=== PATIENT | male | born 1945 | race Caucasian/White ===

== ENCOUNTER 2017-04-04 06:40 | Inpatient (IN) | payer MEDICARE, OTHER ==
[2017-04-04] MEDS ORDERED: Sodium Chloride 0.9% 1,000 ML IV ONE ×2 (07:22→10:30)
--- NOTE | 2017-04-04 07:30 | EDM.PDOC ---
ED HPI GENERAL MEDICAL PROBLEM - General Chief Complaint: Fever Stated Complaint: FEVER/POSS. PNEUMONIA Time Seen by Provider: 04/04/17 07:05 Source of Information: Reports: Patient, Family (), RN Notes Reviewed History Limitations: Reports: Physical Impairment (Patient wearing a nonrebreather mask) - History of Present Illness INITIAL COMMENTS - FREE TEXT/NARRATIVE: The patient and his are visiting from [place]. The patient's states that the patient developed a subjective fever and chills 2 nights ago, 04/02/2017. She gave him Tylenol, and his symptoms resolved. He had similar symptoms last night, was again given Tylenol, and again his symptoms resolved. Overall, however, they feel that his condition has declined, although they are unable to say specifically what new symptoms he has. He has a chronic cough and chronic dyspnea, related to throat cancer and chronic aspiration. The patient has a PEG tube. Here in the ED, his oxygen saturations was found to be under 70% (which is as low as an oxygen saturation monitor can accurately detect), and he was therefore placed on a nonrebreather mask, however, the patient appears to be in atrial fibrillation, which can cause an inaccurately low reading. His blood pressure is low at 77/61, although, again, with a history of fibrillation, this may be an inaccurate reading. Review of prior medical records finds that the patient had a right lower lobe consolidation on his chest x-rays 06/19/15 and 06/22/15, and a left lung infiltrate on chest x-ray 11/10/2015. He did NOT have an infiltrate on a chest x- ray dated 07/07/2016. The patient states that he did receive an influenza vaccine about one month ago. Chest Pain Score (Numeric/FACES): 7 - Related Data Allergies Allergy/AdvReac Type Severity Reaction Status Date / Time No Known Allergies Allergy Verified 04/04/17 07:57 Home Meds: Home Meds Diltiazem. 5 ml GTUBE TID 06/19/15 [History] Metoprolol. 2.5 ml GTUBE TID 06/19/15 [History] Warfarin [Coumadin] 2.5 mg PO MOWEFR 07/07/16 [History] Warfarin [Coumadin] 5 mg PO SUTUTHSA 07/07/16 [History] Past Medical History HEENT History: Reports: Impaired Vision Other HEENT History: Pt wears glasses. Cardiovascular History: Reports: Afib (paroxysmal) Gastrointestinal History: Reports: GERD (untreated) Genitourinary History: Reports: BPH (untreated) Oncologic (Cancer) History: Reports: Other (See Below) (Throat, dx'd 1995, S/P surgical excision, RTx) Other Oncologic History: THROAT - Past Surgical History GI Surgical History: Reports: Other (See Below) (PEG) Musculoskeletal Surgical History: Reports: Hip Replacement (bilateral) Oncologic Surgical History: Reports: Other (See Below) (throat) Social & Family History - Tobacco Use Smoking Status *Q: Former Smoker Years of Tobacco use: 12 Packs/Tins Daily: 1.5 Month Tobacco Last Used: Quit 1995 - Caffeine Use Caffeine Use: Reports: None - Alcohol Use Alcohol Use History: Yes Alcohol Use Frequency: Daily - Recreational Drug Use Recreational Drug Use: No - Living Situation & Occupation Living situation: Reports: , with Spouse Occupation: Retired ED ROS GENERAL - Review of Systems Review Of Systems: See Below Constitutional: Reports: No Symptoms HEENT: Reports: No Symptoms Respiratory: Reports: Shortness of Breath (chronic), Cough (chronic) Cardiovascular: Reports: No Symptoms Endocrine: Reports: No Symptoms GI/Abdominal: Reports: No Symptoms : Reports: No Symptoms Musculoskeletal: Reports: No Symptoms Skin: Reports: No Symptoms Neurological: Reports: No Symptoms Psychiatric: Reports: No Symptoms Hematologic/Lymphatic: Reports: No Symptoms Immunologic: Reports: No Symptoms ED EXAM, SEPSIS - Physical Exam Exam: See Below Exam Limited By: No Limitations General Appearance: Alert, WD/WN, No Apparent Distress Eye Exam: Bilateral Eye: Normal Inspection Ears: Normal External Exam, Hearing Grossly Normal Nose: Normal Inspection, No Blood Throat/Mouth: Normal Lips, No Airway Compromise Head: Atraumatic, Normocephalic Neck: Full Range of Motion Respiratory/Chest: No Respiratory Distress, No Accessory Muscle Use, Decreased Breath Sounds, Rhonchi (Rt > Lt). No: Crackles, Wheezing, Accessory Muscle Use , Prolonged Expiration Cardiovascular: Normal Peripheral Pulses, No Edema, No Gallop, No JVD, No Murmur , No Rub, Tachycardia (too fast to palpate if regular or irregular) Peripheral Pulses: 3+: Radial (L), Radial (R) GI/Abdominal Exam: Normal Bowel Sounds, Soft, Non-Tender, No Organomegaly, No Distention, No Abnormal Bruit, No Mass, Pelvis Stable, Other (PEG in epigastric area is C/D/I) (Male) Exam: Deferred Rectal (Males) Exam: Deferred Back: Normal Inspection, Full Range of Motion, NT Extremities: Normal Inspection, Normal Range of Motion, No Pedal Edema, Normal Capillary Refill Neurological: Alert, Oriented, Normal Cognition, No Motor/Sensory Deficits Psychiatric: Normal Affect Skin: Warm (good peripheral perfusion), Dry, Intact, Normal Color, No Rash Lymphatic: Bilateral: No Adenopathy EKG INTERPRETATION EKG Date: 04/04/17 Time: 07:30 Rhythm: A-Fib Rate (Beats/Min): 141 Ashley: Normal P-Wave: Absent QRS: Normal ST-T: Normal QT: Normal Comparison: No Change (11/10/2015) Course - Vital Signs Last Recorded V/S: Last Vital Signs Temp 36.7 C 04/04/17 06:50 Pulse 162 H 04/04/17 06:50 Resp 18 04/04/17 06:50 BP 77/61 L 04/04/17 06:50 Pulse Ox 72 L 04/04/17 06:50 - Orders/Labs/Meds Orders: Active Orders 24 hr Category Date Time Status EKG Documentation Completion [RC] STAT Care 04/04/17 07:18 Active Chest 1V Frontal [CR] Stat Exams 04/04/17 07:17 Taken CULTURE BLOOD [BC] Stat Lab 04/04/17 07:24 Received CULTURE BLOOD [BC] Stat Lab 04/04/17 07:39 Received Diltiazem 125 mg Med 04/04/17 07:45 Active Sodium Chloride 0.9% [Normal Saline] 100 ml IV TITRATE Blood Culture x2 Reflex Set [OM.PC] Stat Oth 04/04/17 07:22 Ordered Medication Orders Diltiazem HCl 125 mg/ Sodium (Chloride) 125 mls @ 10 mls/hr IV TITRATE KARINA; 10 MG/HR PRN Reason: Protocol Last Admin: 04/04/17 08:12 Dose: 10 mg/hr, 10 mls/hr Labs: Laboratory Tests 04/04/17 04/04/17 04/04/17 Range/Units 07:18 07:24 07:24 WBC 21.19 H (4.23-9.07) K/mm3 RBC 3.86 L (4.63-6.08) M/mm3 Hgb 13.0 L (13.7-17.5) gm/L Hct 38.3 L (40.1-51.0) % MCV 99.2 H (79.0-92.2) fl MCH 33.7 H (25.7-32.2) pg MCHC 33.9 (32.2-35.5) g/dl RDW Std Deviation 47.6 H (35.1-43.9) fL Plt Count 256 (163-337) K/mm3 MPV 10.6 (9.4-12.3) fl Neutrophils % (Manual) 86 H (40-60) % Band Neutrophils % 4 (0-10) % Lymphocytes % (Manual) 7 L (20-40) % Atypical Lymphs % 0 % Monocytes % (Manual) 2 (2-10) % Eosinophils % (Manual) 1 (0.8-7.0) % Basophils % (Manual) 0 L (0.2-1.2) Platelet Estimate Adequate Poikilocytosis 1+ slight Anisocytosis 1+ slight RBC Morph Comment Not Reportable PT (8.0-13.0) SECONDS INR APTT (22-36) SECONDS Puncture Site Rt radial ABG pH 7.44 (7.35-7.45) ABG pCO2 36.0 (35.0-45.0) mmHg ABG pO2 55.0 L (80.0-100.0) mmHg ABG HCO3 24.0 (22.0-26.0) meq/L ABG O2 Saturation 84.5 L (96.0-97.0) % ABG Base Excess 0.7 (-2-2.0) Dwayne Test Positive O2 Delivery Device Mask Oxygen Flow Rate 15.0 FiO2 0.00 L (21.00-100.00) % Sodium 132 L (136-145) mEq/L Potassium 4.9 (3.5-5.1) mEq/L Chloride 97 L (98-107) mEq/L Carbon Dioxide 28 (21-32) mEq/L Anion Gap 11.9 (5-15) BUN 23 H (7-18) mg/dL Creatinine 1.4 H (0.7-1.3) mg/dL Est Cr Clr Drug Dosing 50.40 mL/min Estimated GFR (MDRD) 50 (>60) mL/min BUN/Creatinine Ratio 16.4 (14-18) Glucose 110 (80-115) mg/dL Lactic Acid (0.4-2.0) mmol/L Calcium 9.0 (8.5-10.1) mg/dL Total Bilirubin 1.5 H (0.2-1.0) mg/dL AST 17 (15-37) U/L ALT 15 L (16-63) U/L Alkaline Phosphatase 66 (46-116) U/L Troponin I < 0.017 (0.00-0.056) ng/mL Total Protein 7.3 (6.4-8.2) g/dl Albumin 3.0 L (3.4-5.0) g/dl Globulin 4.3 gm/dL Albumin/Globulin Ratio 0.7 L (1-2) 04/04/17 04/04/17 Range/Units 07:24 07:24 WBC (4.23-9.07) K/mm3 RBC (4.63-6.08) M/mm3 Hgb (13.7-17.5) gm/L Hct (40.1-51.0) % MCV (79.0-92.2) fl MCH (25.7-32.2) pg MCHC (32.2-35.5) g/dl RDW Std Deviation (35.1-43.9) fL Plt Count (163-337) K/mm3 MPV (9.4-12.3) fl Neutrophils % (Manual) (40-60) % Band Neutrophils % (0-10) % Lymphocytes % (Manual) (20-40) % Atypical Lymphs % % Monocytes % (Manual) (2-10) % Eosinophils % (Manual) (0.8-7.0) % Basophils % (Manual) (0.2-1.2) Platelet Estimate Poikilocytosis Anisocytosis RBC Morph Comment PT 23.9 H (8.0-13.0) SECONDS INR 2.09 APTT 41 H (22-36) SECONDS Puncture Site ABG pH (7.35-7.45) ABG pCO2 (35.0-45.0) mmHg ABG pO2 (80.0-100.0) mmHg ABG HCO3 (22.0-26.0) meq/L ABG O2 Saturation (96.0-97.0) % ABG Base Excess (-2-2.0) Dwayne Test O2 Delivery Device Oxygen Flow Rate FiO2 (21.00-100.00) % Sodium (136-145) mEq/L Potassium (3.5-5.1) mEq/L Chloride (98-107) mEq/L Carbon Dioxide (21-32) mEq/L Anion Gap (5-15) BUN (7-18) mg/dL Creatinine (0.7-1.3) mg/dL Est Cr Clr Drug Dosing mL/min Estimated GFR (MDRD) (>60) mL/min BUN/Creatinine Ratio (14-18) Glucose (80-115) mg/dL Lactic Acid 3.0 H (0.4-2.0) mmol/L Calcium (8.5-10.1) mg/dL Total Bilirubin (0.2-1.0) mg/dL AST (15-37) U/L ALT (16-63) U/L Alkaline Phosphatase (46-116) U/L Troponin I (0.00-0.056) ng/mL Total Protein (6.4-8.2) g/dl Albumin (3.4-5.0) g/dl Globulin gm/dL Albumin/Globulin Ratio (1-2) Meds: Medications Generic Name Dose Route Start Last Admin Trade Name Freq PRN Reason Stop Dose Admin Diltiazem HCl 125 mg/ Sodium 125 mls @ 10 mls/hr 04/04/17 07:45 04/04/17 08: 12 Chloride IV 10 mg/hr TITRATE KARINA 10 mls/hr Protocol Administration 10 MG/HR Discontinued Medications Generic Name Dose Route Start Last Admin Trade Name Freq PRN Reason Stop Dose Admin Diltiazem HCl 10 mg 04/04/17 07:40 04/04/17 07:52 Diltiazem IVPUSH 04/04/17 07:41 10 mg ONETIME STA Administration Sodium Chloride 1,000 mls @ 999 mls/hr 04/04/17 07:22 04/04/17 07:30 Normal Saline IV 04/04/17 08:22 999 mls/hr ONETIME ONE Administration Ampicillin Sodium/Sulbactam 100 mls @ 200 mls/hr 04/04/17 08:03 Sodium 3 gm/ Sodium Chloride IV 04/04/17 08:32 ONETIME ONE - Re-Assessments/Exams Free Text/Narrative Re-Assessment/Exam: 04/04/17 07:55 Portable chest radiograph reviewed. Cardiac silhouette is within normal limits. No pulmonary vascular congestion. No pleural effusions seen on this AP view. There are infiltrates seen in the bilateral lower lung mccarty. No pneumothorax. Hyperinflation and bilateral diaphragmatic flattening, consistent with COPD, noted. Formal read per the Radiologist pending. 04/04/17 08:04 The patient's WBC count is elevated at 21.19 with 4% bandemia. The patient's ABG does not show a significant acid-base disturbance, however, it does confirm the patient's oxygen saturation is 84.5% while on a partial rebreather mask. The chest radiograph demonstrates bilateral lower lung field infiltrates, consistent with either pneumonia or pneumonitis. The patient is not on an antacid, which would increase the likelihood of aspiration causing pneumonitis, not pneumonia, nevertheless, I believe it would be prudent to treat for pneumonia at this time. I have therefore ordered 3 g Unasyn. Blood cultures were ordered with the initial orders. 04/04/17 08:09 The patient's heart rate is consistently around 100 bpm following Cardizem 10 mg IVP and while on a Cardizem drip at 10 mg/hr. 04/04/17 08:35 Test results discussed with the patient and his . With the infiltrates on the chest radiograph, an elevated WBC count, and an elevated lactic acid level of 3.0 (despite a normal bicarbonate level and no increased anion gap), the patient may have sepsis. As above, blood cultures were obtained earlier, and the patient has been started on Unasyn. His BUN/Cr are mildly elevated at 23/1.4 , but were normal at 14/0.8 on 07/07/2016, indicating that he has an acute kidney injury. I am recommending admission to the hospital for further treatment , and the patient has agreed. 04/04/17 08:[address] Ha at 08:43. He agrees to admit the patient to the ICU. Departure - Departure Time of Disposition: 08:48 Disposition: Admitted As Inpatient 67 Condition: Fair Clinical Impression: Septic shock, Acute kidney injury Aspiration pneumonia Qualifiers: Aspiration pneumonia type: due to gastric secretions Laterality: left Lung location: lower lobe of lung Qualified Code(s): J69.0 - Pneumonitis due to inhalation of food and vomit - Discharge Information - My Orders Last 24 Hours: My Active Orders 04/04/17 07:17 Chest 1V Frontal [CR] Stat 04/04/17 07:18 EKG Documentation Completion [RC] STAT 04/04/17 07:22 Blood Culture x2 Reflex Set [OM.PC] Stat 04/04/17 07:24 CULTURE BLOOD [BC] Stat 04/04/17 07:39 CULTURE BLOOD [BC] Stat 04/04/17 07:45 Diltiazem 125 mg Sodium Chloride 0.9% [Normal Saline] 100 ml IV TITRATE - Assessment/Plan Last 24 Hours: My Active Orders 04/04/17 07:17 Chest 1V Frontal [CR] Stat 04/04/17 07:18 EKG Documentation Completion [RC] STAT 04/04/17 07:22 Blood Culture x2 Reflex Set [OM.PC] Stat 04/04/17 07:24 CULTURE BLOOD [BC] Stat 04/04/17 07:39 CULTURE BLOOD [BC] Stat 04/04/17 07:45 Diltiazem 125 mg Sodium Chloride 0.9% [Normal Saline] 100 ml IV TITRATE
[2017-04-04] MEDS ORDERED: Diltiazem 25 MG/5 ML SDV IVPUSH STA (07:40)
[2017-04-04] MEDS ORDERED: Diltiazem 125 MG in Sodium Chloride 0.9% 100 ML IV SCH (07:45)
[2017-04-04] MEDS ORDERED: Ampicillin/Sulbactam Na 3 GM in Sodium Chloride 0.9% 100 ML IV ONE (08:03)
[2017-04-04] MEDS ORDERED: Sodium Chloride 0.9% 1,000 ML IV SCH (09:15)
[2017-04-04] MEDS ORDERED: Acetaminophen Susp 325 MG/10.15 ML UD Cup PO ONE (09:26)
[2017-04-04] MEDS ORDERED: Acetaminophen/HYDROcodone 325-5 MG Tab PO PRN (10:20)
[2017-04-04] MEDS ORDERED: Ondansetron 4 MG/2 ML SDV IV PRN (10:20)
[2017-04-04] MEDS ORDERED: Docusate Sodium 100 MG Cap PO PRN (10:20)
[2017-04-04] MEDS ORDERED: LORazepam 2 MG/ML MDV IV PRN (10:20)
[2017-04-04] MEDS ORDERED: Promethazine 12.5 MG in Sodium Chloride 0.9% 50 ML IV PRN (10:20)
[2017-04-04] MEDS ORDERED: Bisacodyl 5 MG Tab PO PRN (10:20)
[2017-04-04] MEDS ORDERED: HYDROmorphone 0.5 MG/0.5 ML Syringe IVPUSH PRN (10:20)
[2017-04-04] MEDS ORDERED: Polyethylene Glycol 3350 Powder 17 GM Packet PO PRN (10:20)
[2017-04-04] MEDS ORDERED: hydrALAZINE 20 MG/ML SDV IVPUSH PRN (10:28)
[2017-04-04] MEDS ORDERED: Non-Formulary Medication 1 Each (Acetaminophen 500 MG) PO PRN (10:28)
[2017-04-04] MEDS ORDERED: Levofloxacin/Dextrose 5%-Water 750 MG in Premix Bag 1 BAG IV ONE (10:29)
--- NOTE | 2017-04-04 10:35 | PCM.HP ---
H&P History of Present Illness - General Date of Service: 04/04/17 Admit Problem/Dx: Sepsis and Atrial Fibrillation with RVR Source of Information: Patient, Family, Old Records, Provider, RN Notes Reviewed History Limitations: Reports: No Limitations - History of Present Illness Initial Comments - Free Text/Narative: This is a 71-year-old white male with past medical history of impaired vision, history of paroxysmal atrial fibrillation, GERD, history of throat cancer status post surgical excision, and BPH who presents to the emergency department with complaints of subjective fever and chills that started 2 nights ago. His symptoms minimally improved with Tylenol. He admits to chronic cough and dysphagia related to his history of thyroid cancer status post surgical resection. Patient also carries a history of dysphagia status post PEG placement. On presentation to the emergency department, he was found sating in the 70s, with a fast heart rate and a documented blood pressure as low as 77/61 mm per mercury. His initial workup in emergency department shows a CBC remarkable for WBC of 21.19, RBC of 3.86, hemoglobin of 13, hematocrit of 38.3, MCV of 99.2, MCH of 33.7, neutrophils of 86% and lymphocytes of 7%. His PT is 23.9, INR is 2.09 and APTT is 41. His ABG shows pH of 7.44, PCO2 of 36, PO2 of 55, HCO3 of 24 and O2 sat of 84.5%. His chemistry is remarkable for sodium of 132, chloride of 97, BUN of 23, creatinine of 1.4, lactic acid of 3, total bilirubin of 1.5, ALT of 15, CRP of 16.2, and albumin of 3. His UA is s not impressive for urinary tract infection. His chest x-ray shows bilateral lower lobe infiltrate. Patient received initial treatment in the emergency department before he was sent to the floor for further treatment. He is being admitted for septic shock secondary to pneumonia, acute kidney injury and atrial fibrillation with RVR. He is full code. Chest Pain Score (Numeric/FACES): 7 - Related Data Allergies/Adverse Reactions: Allergies Allergy/AdvReac Type Severity Reaction Status Date / Time No Known Allergies Allergy Verified 04/04/17 19:27 Home Medications: Home Meds Diltiazem. 5 ml GTUBE TID 06/19/15 [History] Metoprolol. 2.5 ml GTUBE TID 06/19/15 [History] Warfarin [Coumadin] 2.5 mg PO MOWEFR 07/07/16 [History] Warfarin [Coumadin] 5 mg PO SUTUTHSA 07/07/16 [History] Acetaminophen [Tylenol Extra Strength] 500 mg PO Q4H PRN 04/04/17 [History] Lactose-Reduced Food/Fiber [Isosource 1.5 Damon Liquid] 250 ml GTUBE 1200 [History] Lactose-Reduced Food/Fiber [Isosource 1.5 Damon Liquid] 375 ml GTUBE 0600 [History] Lactose-Reduced Food/Fiber [Isosource 1.5 Damon Liquid] 375 ml GTUBE 1800 [History] Past Medical History HEENT History: Reports: Impaired Vision Other HEENT History: Pt wears glasses. Cardiovascular History: Reports: Afib (paroxysmal) Other Cardiovascular History: Pt on coumadin. Respiratory History: Reports: Bronchitis, Recurrent, Pneumonia, Recurrent Other Respiratory History: ASPIRATION PNEUMONIA Gastrointestinal History: Reports: GERD (untreated) Other Gastrointestinal History: PERCUTANEOUS GASTROSTOMY TUBE Genitourinary History: Reports: BPH (untreated) Musculoskeletal History: Reports: Fracture Oncologic (Cancer) History: Reports: Other (See Below) (Throat, dx'd 1995, S/P surgical excision, RTx) Other Oncologic History: THROAT - Infectious Disease History Infectious Disease History: Reports: Chicken Pox, Measles, Mumps - Past Surgical History GI Surgical History: Reports: Other (See Below) (PEG) Musculoskeletal Surgical History: Reports: Hip Replacement (bilateral) Oncologic Surgical History: Reports: Other (See Below) (throat) Social & Family History - Tobacco Use Smoking Status *Q: Former Smoker Years of Tobacco use: 12 Packs/Tins Daily: 1.5 Used Tobacco, but Quit: No Month Tobacco Last Used: Quit 1995 - Caffeine Use Caffeine Use: Reports: None - Recreational Drug Use Recreational Drug Use: No - Living Situation & Occupation Living situation: Reports: , with Spouse Occupation: Retired H&P Review of Systems - Review of Systems: Review Of Systems: See Below General: Denies: Fever, Chills, Malaise, Weakness HEENT: Reports: Dysphasia Pulmonary: Reports: No Symptoms, Shortness of Breath, Cough Cardiovascular: Denies: Chest Pain, Palpitations, Dyspnea on Exertion Gastrointestinal: Denies: Abdominal Pain, Diarrhea, Difficulty Swallowing, Distension, Nausea, Vomiting Genitourinary: Reports: No Symptoms Musculoskeletal: Reports: No Symptoms Skin: Denies: Cyanosis, Mottled, Pallor, Diaphoresis, Rash, Erythema, Change in Color Psychiatric: Denies: Depression, Anxiety, Hallucinations Neurological: Denies: Confusion, Difficulty Walking, Weakness, Gait Disturbance Hematologic/Lymphatic: Reports: No Symptoms Immunologic: Reports: No Symptoms Exam - Exam Exam: See Below - Vital Signs Vital Signs: Last Vital Signs Temp 36.7 C 04/04/17 06:50 Pulse 162 H 04/04/17 06:50 Resp 18 04/04/17 06:50 BP 77/61 L 04/04/17 06:50 Pulse Ox 72 L 04/04/17 06:50 Weight: 72.575 kg - Exam General: Alert, Oriented, Cooperative, Mild Distress HEENT: Conjunctiva Clear, EOMI, Hearing Intact, Mucosa Moist & Peak Place, Nares Patent, Normal Nasal Septum, Posterior Pharynx Clear, Pupils Equal, Pupils Reactive, Other (Disfigured/Loss of Mass on right neck ) Neck: Supple, Trachea Midline, +2 Carotid Pulse wo Bruit, Full Range of Motion. No: Lymphadenopathy Lungs: Normal Respiratory Effort, Decreased Breath Sounds, Crackles, Rhonchi Cardiovascular: Regular Rhythm, Tachycardia GI/Abdominal Exam: Normal Bowel Sounds, Soft, Non-Tender, No Organomegaly, No Distention, No Abnormal Bruit, Other (PEG tub in the eigastric region) (Male) Exam: Deferred Rectal (Males) Exam: Deferred Back Exam: Normal Inspection, Decreased Range of Motion Extremities: Normal Inspection, Normal Range of Motion, Non-Tender, No Pedal Edema, Normal Capillary Refill Peripheral Pulses: 3+: Posterior Tibial (L), Posterior Tibial (R), Dorsalis Pedis (L), Dorsalis Pedis (R) Skin: Warm, Dry, Intact Neuro Extensive - Mental Status: Oriented x3, Normal Cognition, Memory Intact Neuro Extensive - Motor, Sensory, Reflexes: CN II-XII Intact, Normal Gait Psychiatric: Alert, Normal Affect, Normal Mood - Patient Data Result Diagrams: 04/05/17 06:00 04/05/17 15:48 EKG INTERPRETATION EKG Date: 04/04/17 Time: 07:30 Rhythm: A-Fib Rate (Beats/Min): 141 [place]: Normal P-Wave: Absent QRS: Normal ST-T: Normal QT: Normal Comparison: Change From Previous EKG (11/10/2015) *Q Meaningful Use (ADM) - VTE *Q VTE Criteria *Q: - Stroke *Q Stroke Criteria *Q: - AMI *Q AMI Criteria *Q: Problem List Initiated/Reviewed/Updated: Yes Orders Last 24hrs: Active Orders 24 hr Category Date Time Status Cardiac Monitoring [RC] CONTINUOUS Care 04/04/17 10:21 Ordered Height and Weight [RC] DAILY Care 04/04/17 10:20 Ordered Intake and Output [RC] QSHIFT Care 04/04/17 10:21 Ordered Oxygen Therapy [RC] PRN Care 04/04/17 10:20 Ordered RT Aerosol Therapy [RC] ASDIRECTED Care 04/04/17 10:24 Ordered Up With Assistance [RC] ASDIRECTED Care 04/04/17 10:20 Ordered Up ad Bia [RC] ASDIRECTED Care 04/04/17 10:20 Ordered VTE/DVT Education [RC] PER UNIT ROUTINE Care 04/04/17 10:20 Ordered Vital Signs [RC] Q4H Care 04/04/17 10:20 Ordered Consult to Case Management [CONS] Routine Cons 04/04/17 10:25 Ordered Consult to Logistics Planner [CONS] Routine Cons 04/04/17 10:25 Ordered Consult to Spiritual Care [CONS] Routine Cons 04/04/17 10:25 Ordered OT Evaluation and Treatment [CONS] Routine Cons 04/04/17 10:25 Ordered PT Evaluation and Treatment [CONS] Routine Cons 04/04/17 10:25 Ordered Respiratory Care Assess and Treatment [CONS] Routine Cons 04/04/17 10:25 Ordered INSPECTOR PAWNSHOP DETAIL Evaluation and Treatment [CONS] Routine Cons 04/04/17 10:25 Ordered Regular Diet [DIET] Diet 04/04/17 Lunch Ordered Chest 1V Frontal [CR] Routine Exams 04/06/17 07:00 Ordered BASIC METABOLIC PANEL,BMP [CHEM] AM Lab 04/05/17 05:11 Ordered BASIC METABOLIC PANEL,BMP [CHEM] AM Lab 04/06/17 05:11 Ordered BASIC METABOLIC PANEL,BMP [CHEM] AM Lab 04/07/17 05:11 Ordered BASIC METABOLIC PANEL,BMP [CHEM] AM Lab 04/08/17 05:11 Ordered BASIC METABOLIC PANEL,BMP [CHEM] AM Lab 04/09/17 05:11 Ordered C-REACTIVE PROTEIN [CHEM] AM Lab 04/05/17 05:11 Ordered C-REACTIVE PROTEIN [CHEM] AM Lab 04/06/17 05:11 Ordered C-REACTIVE PROTEIN [CHEM] AM Lab 04/07/17 05:11 Ordered C-REACTIVE PROTEIN [CHEM] AM Lab 04/08/17 05:11 Ordered C-REACTIVE PROTEIN [CHEM] Stat Lab 04/04/17 10:24 Ordered CBC WITH AUTO DIFF [HEME] AM Lab 04/05/17 05:11 Ordered CBC WITH AUTO DIFF [HEME] AM Lab 04/06/17 05:11 Ordered CBC WITH AUTO DIFF [HEME] AM Lab 04/07/17 05:11 Ordered CBC WITH AUTO DIFF [HEME] AM Lab 04/08/17 05:11 Ordered CULTURE SPUTUM + SMEAR [RM] Stat Lab 04/04/17 10:25 Uncollected CULTURE URINE [RM] Stat Lab 04/04/17 10:25 Uncollected INR,PT,PROTHROMBIN TIME [COAG] AM Lab 04/05/17 05:11 Ordered INR,PT,PROTHROMBIN TIME [COAG] AM Lab 04/06/17 05:11 Ordered INR,PT,PROTHROMBIN TIME [COAG] AM Lab 04/07/17 05:11 Ordered INR,PT,PROTHROMBIN TIME [COAG] AM Lab 04/08/17 05:11 Ordered INR,PT,PROTHROMBIN TIME [COAG] AM Lab 04/09/17 05:11 Ordered LACTIC ACID [CHEM] Routine Lab 04/04/17 13:00 Ordered LACTIC ACID [CHEM] Routine Lab 04/04/17 18:00 Ordered MAGNESIUM [CHEM] AM Lab 04/05/17 05:11 Ordered UA W/MICROSCOPIC [URIN] Stat Lab 04/04/17 10:25 Uncollected Acetaminophen Med 04/04/17 10:28 Ordered 500 mg PO Q4H PRN Acetaminophen [Tylenol] Med 04/04/17 10:20 Ordered 650 mg PO Q4H PRN Acetaminophen/HYDROcodone [Purvis 325-5 MG] Med 04/04/17 10:20 Ordered 1 tab PO Q4H PRN Albuterol/Ipratropium [DuoNeb 3.0-0.5 MG/3 ML] Med 04/04/17 10:20 Ordered 3 ml NEB Q4H PRN Ampicillin/Sulbactam Na [Unasyn] 1.5 gm Med 04/04/17 14:30 Ordered Sodium Chloride 0.9% [Normal Saline] 100 ml IV Q6H Bisacodyl [Dulcolax] Med 04/04/17 10:20 Ordered 5 mg PO DAILY PRN Diltiazem. Med 04/04/17 15:00 Ordered 5 ml GTUBE TID Docusate Sodium [Colace] Med 04/04/17 10:20 Ordered 100 mg PO BID PRN Docusate Sodium/Sennosides [Senna Plus] Med 04/04/17 10:20 Ordered 1 tab PO BID PRN HYDROmorphone [Dilaudid] Med 04/04/17 10:20 Ordered 0.25 mg IVPUSH Q2H PRN LORazepam [Ativan] Med 04/04/17 10:20 Ordered 1 mg IV Q6H PRN Lactose-Reduced Food/Fiber [Isosource 1.5 Damon Liquid] Med 04/05/17 10:00 Ordered 250 ml GTUBE ACLUNCH Lactose-Reduced Food/Fiber [Isosource 1.5 Damon Liquid] Med 04/05/17 06:00 Ordered 325 ml GTUBE ACBREAKFAST Lactose-Reduced Food/Fiber [Isosource 1.5 Damon Liquid] Med 04/04/17 16:00 Ordered 325 ml GTUBE ACDINNER Levofloxacin/Dextrose 5%-Water [Levaquin in D5W 750 MG/ Med 04/04/17 10:29 Ordered 150 ML] 750 mg Premix Bag 1 bag IV ONETIME Levofloxacin/Dextrose 5%-Water [Levaquin in D5W 750 MG/ Med 04/05/17 09:00 Ordered 150 ML] 750 mg Premix Bag 1 bag IV Q24H Magnesium Rep Pharmacy to Dose [Pharmacy to Dose - Med 04/04/17 10:30 Ordered Magnesium Replacement] 1 dose .XX ASDIRECTED Metoprolol Tartrate [Lopressor] Med 04/04/17 10:28 Ordered 5 mg IVPUSH Q4H PRN Metoprolol. Med 04/04/17 15:00 Ordered 2.5 ml GTUBE TID Norepinephrine 4 MG in D5W @ 2 MCG/MIN(250ml) Med 04/04/17 10:45 Ordered Norepinephrine [Levophed] 4 mg Dextrose 5% in Water 246 ml IV TITRATE Ondansetron [Zofran] Med 04/04/17 10:20 Ordered 4 mg IV Q6H PRN Polyethylene Glycol 3350 [MiraLAX] Med 04/04/17 10:20 Ordered 17 gm PO DAILY PRN Potassium Rep Pharmacy to Dose [Pharmacy to Dose - Med 04/04/17 10:30 Ordered Potassium Replacement] 1 dose .XX ASDIRECTED Promethazine [Phenergan] 12.5 mg Med 04/04/17 10:20 Ordered Sodium Chloride 0.9% [Normal Saline] 50 ml IV Q6H Saccharomyces Boulardii [Florastor] Med 04/04/17 21:00 Ordered 250 mg PO BID Saccharomyces Boulardii [Florastor] Med 04/04/17 10:31 Stat 500 mg PO NOW STA Sodium Chloride 0.9% [Normal Saline] 1,000 ml Med 04/04/17 10:30 Ordered IV .BOLUS Temazepam [Restoril] Med 04/04/17 10:20 Ordered 7.5 mg PO BEDTIME PRN Warfarin [Coumadin] Med 04/05/17 10:28 Ordered 2.5 mg PO MOWEFR Warfarin [Coumadin] Med 04/04/17 10:30 Ordered 5 mg PO SUTUTHSA hydrALAZINE [Apresoline] Med 04/04/17 10:28 Ordered 20 mg IVPUSH Q4H PRN Resuscitation Status Routine Resus Stat 04/04/17 10:20 Ordered Medication Orders Acetaminophen (Tylenol) 650 mg PO Q4H PRN PRN Reason: Pain (Mild 1-3)/fever Hydrocodone Bitart/Acetaminophen (Purvis 325-5 Mg) 1 tab PO Q4H PRN PRN Reason: Pain (moderate 4-6) Albuterol/Ipratropium (Duoneb 3.0-0.5 Mg/3 Ml) 3 ml NEB Q4H PRN PRN Reason: Shortness Of Breath/wheezing Bisacodyl (Dulcolax) 5 mg PO DAILY PRN PRN Reason: Constipation Docusate Sodium (Colace) 100 mg PO BID PRN PRN Reason: Constipation Hydralazine HCl (Apresoline) 20 mg IVPUSH Q4H PRN PRN Reason: Hypertension Hydromorphone HCl (Dilaudid) 0.25 mg IVPUSH Q2H PRN PRN Reason: Pain (severe 7-10) Diltiazem HCl 125 mg/ Sodium (Chloride) 125 mls @ 10 mls/hr IV TITRATE KARINA; 10 MG/HR PRN Reason: Protocol Last Admin: 04/04/17 08:12 Dose: 10 mg/hr, 10 mls/hr Sodium Chloride (Normal Saline) 1,000 mls @ 250 mls/hr IV ASDIRECTED KARINA Last Admin: 04/04/17 08:50 Dose: 250 mls/hr Ampicillin Sodium/Sulbactam (Sodium 1.5 gm/ Sodium Chloride) 100 mls @ 200 mls/ hr IV Q6H KARINA Levofloxacin/Dextrose 750 mg/ (Premix) 150 mls @ 100 mls/hr IV ONETIME ONE Stop: 04/04/17 11:58 Levofloxacin/Dextrose 750 mg/ (Premix) 150 mls @ 100 mls/hr IV Q24H KARINA Lorazepam (Ativan) 1 mg IV Q6H PRN PRN Reason: Anxiety Magnesium Sulfate (Pharmacy To Dose - Magnesium Replacement) 1 dose .XX ASDIRECTED KARINA Metoprolol Tartrate (Lopressor) 5 mg IVPUSH Q4H PRN PRN Reason: Tachycardia Non-Formulary Medication (Acetaminophen) 500 mg PO Q4H PRN PRN Reason: Fever Non-Formulary Medication (Diltiazem.) 5 ml GTUBE TID KARINA Non-Formulary Medication (Lactose-Reduced Food/Fiber [Isosource 1.5 Damon Liquid] ) 325 ml GTUBE ACDINNER KARINA Non-Formulary Medication (Lactose-Reduced Food/Fiber [Isosource 1.5 Damon Liquid] ) 325 ml GTUBE ACBREAKFAST KARINA Non-Formulary Medication (Lactose-Reduced Food/Fiber [Isosource 1.5 Damon Liquid] ) 250 ml GTUBE ACLUNCH KARINA Non-Formulary Medication (Metoprolol.) 2.5 ml GTUBE TID KARINA Senna/Docusate Sodium (Senna Plus) 1 tab PO BID PRN PRN Reason: Constipation Assessment/Plan Comment:: Assessment/Plan: Acute: Septic Shock - 2/2 PNA - Documented profound hypotension with the following BPs: 77/61, 82/61, 80/ 60 and 84/61 mmHg - Minimally improved with fluid challenge - He is on cardizem drip for his A-fib RVR - Additional 1L NS to improve volume status - Try to wean off cardizem drip - Cortisol level and then solucortef 100 mg IV Q6 - Pressor drip to keep MAP at or > than 65 mmHg - Continue IV Unasyn; will add IV Levaquin daily - Monitor for hemodynamic instability PNA - Bilateral infiltrate on CXR - Risk factor: Dysphagia/Chronic Cough/Aspiration and GERD - WBC is 21K and CRP is 16.2 - IV ATB as above - Sputum Cx/Sx; Supplemental O2; Bronchodilators - Routine RT care and Serial CXR Atrial Fibrillation with RVR - Likely induced by Sepsis - INR is therapeutic at 2.09; continue warfarin - Currently on Cardizem drip but will try to come off since his HR is now < 100 - Continue home rate control meds with PRN Lopressor 5 mg IVP Q4 - Daily INR and repeat EKG in AM Acute Kidney Injury - Likely 2/2 intravascular Volume Depletion from poor fluid intake - Baseline eGFR is > 60; he is 50 on admission - Currently Hydration - Avoid nephrotoxic agent if possible - Monitor urine output and vitals Lactic Acidosis - LA is 3.0 - 2/2 Septic shock - Follow up level at 1300 - Continue with hydration and pressure support drip Leukocytosis - WBC of 21K - 2/2 PNA - Treat underlying cause - Monitor CBC Chronic: Impaired Vision Hx/o PAF on Warfarin GERD, H2B BPH, Flomax Hx/o Throat Cancer S/p Surgical Resection, Stable Hx/o Aspiration PNA Dysphagia S/p PEG Tube Placement Plan: Admit to ICU Resume Home Meds Routine AM Labs PT/OT/INSPECTOR PAWNSHOP DETAIL eval RT for hypoxia Aspiration Precaution DVT/GI PPx: Warfarin and H2B Diet as per PEG Tube home regimen SW/CM for d/c planning Additional orders as above Code status: 1 Prognosis serious-critical
[2017-04-04] MEDS ORDERED: Saccharomyces Boulardii (Probiotic) 250 MG Cap PO STA (10:44)
[2017-04-04] MEDS ORDERED: Norepinephrine 4 MG in Dextrose 5% in Water 246 ML IV SCH ×2 (10:45)
[2017-04-04] MEDS ORDERED: Sodium Chloride 0.9% 500 ML IV ONE (11:59)
[2017-04-04] MEDS ORDERED: Bumetanide 1 MG/4 ML MDV IVPUSH ONE (14:35)
[2017-04-04] MEDS: Ampicillin/Sulbactam Na 1.5 GM in Sodium Chloride 0.9% 100 ML IV SCH ×2 (15:21→20:09)
[2017-04-04] MEDS: Sodium Chloride 0.9% 1,000 ML IV SCH (15:26)
[2017-04-04] MEDS ORDERED: ENTERAL NUTRITION FORMULA GTUBE SCH (16:00)
[2017-04-04] MEDS: Metoprolol Tartrate 25 MG Tab GTUBE SCH ×2 (16:25→21:22)
[2017-04-04] MEDS: Diltiazem IR 60 MG Tab GTUBE SCH ×2 (16:25→21:23)
[2017-04-04] MEDS: Hydrocortisone Sodium Succinate 100 MG/2 ML SDV IVPUSH SCH ×2 (16:51→22:16)
[2017-04-04] MEDS: Metoprolol Tartrate 5 MG/5 ML SDV IVPUSH PRN (17:52)
[2017-04-04] MEDS: Warfarin 5 MG Tab PO SCH (17:58)
[2017-04-04] MEDS ORDERED: Temazepam 7.5 MG Cap PO PRN (21:00)
[2017-04-04] MEDS: Saccharomyces Boulardii (Probiotic) 250 MG Cap PO SCH (21:24)
[2017-04-05] MEDS: Ampicillin/Sulbactam Na 1.5 GM in Sodium Chloride 0.9% 100 ML IV SCH ×4 (02:14→20:32)
[2017-04-05] MEDS: Albuterol/Ipratropium 3.0-0.5 MG/3 ML Neb Soln NEB PRN (02:39)
[2017-04-05] MEDS: Hydrocortisone Sodium Succinate 100 MG/2 ML SDV IVPUSH SCH ×2 (04:16→10:00)
[2017-04-05] MEDS: Sodium Chloride 0.9% 1,000 ML IV SCH ×2 (04:24→17:32)
[2017-04-05] MEDS ORDERED: ENTERAL NUTRITION FORMULA GTUBE SCH ×2 (06:00→10:00)
[2017-04-05] MEDS: Metoprolol Tartrate 5 MG/5 ML SDV IVPUSH PRN (06:35)
--- NOTE | 2017-04-05 06:45 | CR ---
Chest: Portable view of the chest was obtained. Comparison: Prior chest x-ray of 07/07/16. Heart is enlarged. Tortuous thoracic aorta is seen. Pulmonary vessels are felt to be congested. More focal density is seen within the left lung base which could represent pneumonia or more focal congestion. Old healed left upper rib fractures are noted. Several old healed right-sided rib fractures are noted. Impression: 1. Cardiomegaly and pulmonary vascular congestion. 2. Focal density within the left base either due to more focal congestion or superimposed pneumonia. Diagnostic code #3
--- NOTE | 2017-04-05 07:48 | PCM.PN ---
- General Info Date of Service: 04/05/17 Admission Dx/Problem (Free Text): Sepsis and Atrial Fibrillation with RVR Subjective Update: Follow Up Functional Status: Reports: Pain Controlled, Tolerating Diet, Urinating - Review of Systems General: Denies: Fever, Chills HEENT: Reports: No Symptoms Pulmonary: Denies: Shortness of Breath Cardiovascular: Denies: Chest Pain Gastrointestinal: Denies: Abdominal Pain, Nausea, Vomiting Genitourinary: Reports: No Symptoms Musculoskeletal: Reports: No Symptoms Skin: Denies: Cyanosis, Mottled, Pallor, Diaphoresis, Pruritis Neurological: Denies: Confusion, Difficulty Walking, Weakness, Gait Disturbance Psychiatric: Denies: Depression, Anxiety, Agitation, Hallucinations Systems Review Comment:: No significant overnight or acute issues. He vitals have improved. He feels better but slept on and off. He is now off levophed drip and his HR is controlled. He is afebrile but his WBC is up from 21K to now 24K. LA is 1.2 and Mg is 1.7. His CRP is up from 16.2 to 31.6. He has no new complaints. - Patient Data Vitals - Most Recent: Last Vital Signs Temp 36.5 C 04/05/17 04:00 Pulse 120 H 04/05/17 06:35 Resp 16 04/05/17 04:00 BP 125/93 H 04/05/17 06:35 Pulse Ox 90 L 04/05/17 05:00 Weight - Most Recent: 76.022 kg I&O - Last 24 Hours: Intake & Output 04/04/17 04/05/17 04/05/17 22:59 06:59 14:59 Intake Total 2494 1900 Output Total 1000 300 Balance 1494 1600 Lab Results Last 24 Hours: Laboratory Results - last 24 hr 04/04/17 04/04/17 04/04/17 Range/Units 13:04 15:30 18:15 WBC (4.23-9.07) K/mm3 RBC (4.63-6.08) M/mm3 Hgb (13.7-17.5) gm/L Hct (40.1-51.0) % MCV (79.0-92.2) fl MCH (25.7-32.2) pg MCHC (32.2-35.5) g/dl RDW Std Deviation (35.1-43.9) fL Plt Count (163-337) K/mm3 MPV (9.4-12.3) fl Neut % (Auto) (34.0-67.9) % Lymph % (Auto) (21.8-53.1) % [place] % (Auto) (5.3-12.2) % Eos % (Auto) (0.8-7.0) Baso % (Auto) (0.1-1.2) % Neut # (Auto) (1.78-5.38) K/mm3 Lymph # (Auto) (1.32-3.57) K/mm3 [place] # (Auto) (0.30-0.82) K/mm3 Eos # (Auto) (0.04-0.54) K/mm3 Baso # (Auto) (0.01-0.08) K/mm3 Manual Slide Review PT (8.0-13.0) SECONDS INR Sodium (136-145) mEq/L Potassium (3.5-5.1) mEq/L Chloride (98-107) mEq/L Carbon Dioxide (21-32) mEq/L Anion Gap (5-15) BUN (7-18) mg/dL Creatinine (0.7-1.3) mg/dL Est Cr Clr Drug Dosing mL/min Estimated GFR (MDRD) (>60) mL/min BUN/Creatinine Ratio (14-18) Glucose (80-115) mg/dL Lactic Acid 2.7 H 2.2 H (0.4-2.0) mmol/L Calcium (8.5-10.1) mg/dL Magnesium (1.8-2.4) mg/dl C-Reactive Protein (<1.0) mg/dL Urine Color Yellow (Yellow) Urine Appearance Clear (Clear) Urine pH 6.0 (5.0-8.0) Ur Specific [place] 1.020 (1.005-1.030) Urine Protein 1+ H (Negative) Urine Glucose (UA) Negative (Negative) Urine Ketones Trace H (Negative) Urine Occult Blood Negative (Negative) Urine Nitrite Positive H (Negative) Urine Bilirubin 1+ H (Negative) Urine Urobilinogen 0.2 (0.2-1.0) Ur Leukocyte Esterase Negative (Negative) Urine RBC 0-5 (0-5) /hpf Urine WBC 0-5 (0-5) /hpf Ur Epithelial Cells 0-5 (0-5) /hpf Urine Bacteria Moderate H (FEW) /hpf Urine Mucus Moderate H (FEW) /hpf 04/05/17 04/05/17 04/05/17 Range/Units 06:00 06:00 06:00 WBC 24.64 H (4.23-9.07) K/mm3 RBC 3.63 L (4.63-6.08) M/mm3 Hgb 12.0 L (13.7-17.5) gm/L Hct 36.1 L (40.1-51.0) % MCV 99.4 H (79.0-92.2) fl MCH 33.1 H (25.7-32.2) pg MCHC 33.2 (32.2-35.5) g/dl RDW Std Deviation 47.7 H (35.1-43.9) fL Plt Count 209 (163-337) K/mm3 MPV 11.0 (9.4-12.3) fl Neut % (Auto) 91.8 H (34.0-67.9) % Lymph % (Auto) 2.1 L (21.8-53.1) % [place] % (Auto) 4.2 L (5.3-12.2) % Eos % (Auto) 0 L (0.8-7.0) Baso % (Auto) 0.0 L (0.1-1.2) % Neut # (Auto) 22.60 H (1.78-5.38) K/mm3 Lymph # (Auto) 0.51 L (1.32-3.57) K/mm3 [place] # (Auto) 1.04 H (0.30-0.82) K/mm3 Eos # (Auto) 0.00 L (0.04-0.54) K/mm3 Baso # (Auto) 0.01 (0.01-0.08) K/mm3 Manual Slide Review Abnormal smear PT 35.2 H (8.0-13.0) SECONDS INR 3.01 Sodium 135 L (136-145) mEq/L Potassium 4.1 (3.5-5.1) mEq/L Chloride 100 (98-107) mEq/L Carbon Dioxide 26 (21-32) mEq/L Anion Gap 13.1 (5-15) BUN 17 (7-18) mg/dL Creatinine 0.6 L (0.7-1.3) mg/dL Est Cr Clr Drug Dosing 118.29 mL/min Estimated GFR (MDRD) > 60 (>60) mL/min BUN/Creatinine Ratio 28.3 H (14-18) Glucose 143 H (80-115) mg/dL Lactic Acid (0.4-2.0) mmol/L Calcium 8.7 (8.5-10.1) mg/dL Magnesium 1.7 L (1.8-2.4) mg/dl C-Reactive Protein 31.6 H* (<1.0) mg/dL Urine Color (Yellow) Urine Appearance (Clear) Urine pH (5.0-8.0) Ur Specific [place] (1.005-1.030) Urine Protein (Negative) Urine Glucose (UA) (Negative) Urine Ketones (Negative) Urine Occult Blood (Negative) Urine Nitrite (Negative) Urine Bilirubin (Negative) Urine Urobilinogen (0.2-1.0) Ur Leukocyte Esterase (Negative) Urine RBC (0-5) /hpf Urine WBC (0-5) /hpf Ur Epithelial Cells (0-5) /hpf Urine Bacteria (FEW) /hpf Urine Mucus (FEW) /hpf 04/05/17 Range/Units 06:00 WBC (4.23-9.07) K/mm3 RBC (4.63-6.08) M/mm3 Hgb (13.7-17.5) gm/L Hct (40.1-51.0) % MCV (79.0-92.2) fl MCH (25.7-32.2) pg MCHC (32.2-35.5) g/dl RDW Std Deviation (35.1-43.9) fL Plt Count (163-337) K/mm3 MPV (9.4-12.3) fl Neut % (Auto) (34.0-67.9) % Lymph % (Auto) (21.8-53.1) % [place] % (Auto) (5.3-12.2) % Eos % (Auto) (0.8-7.0) Baso % (Auto) (0.1-1.2) % Neut # (Auto) (1.78-5.38) K/mm3 Lymph # (Auto) (1.32-3.57) K/mm3 [place] # (Auto) (0.30-0.82) K/mm3 Eos # (Auto) (0.04-0.54) K/mm3 Baso # (Auto) (0.01-0.08) K/mm3 Manual Slide Review PT (8.0-13.0) SECONDS INR Sodium (136-145) mEq/L Potassium (3.5-5.1) mEq/L Chloride (98-107) mEq/L Carbon Dioxide (21-32) mEq/L Anion Gap (5-15) BUN (7-18) mg/dL Creatinine (0.7-1.3) mg/dL Est Cr Clr Drug Dosing mL/min Estimated GFR (MDRD) (>60) mL/min BUN/Creatinine Ratio (14-18) Glucose (80-115) mg/dL Lactic Acid 1.2 (0.4-2.0) mmol/L Calcium (8.5-10.1) mg/dL Magnesium (1.8-2.4) mg/dl C-Reactive Protein (<1.0) mg/dL Urine Color (Yellow) Urine Appearance (Clear) Urine pH (5.0-8.0) Ur Specific [place] (1.005-1.030) Urine Protein (Negative) Urine Glucose (UA) (Negative) Urine Ketones (Negative) Urine Occult Blood (Negative) Urine Nitrite (Negative) Urine Bilirubin (Negative) Urine Urobilinogen (0.2-1.0) Ur Leukocyte Esterase (Negative) Urine RBC (0-5) /hpf Urine WBC (0-5) /hpf Ur Epithelial Cells (0-5) /hpf Urine Bacteria (FEW) /hpf Urine Mucus (FEW) /hpf Wei Results Last 24 Hours: Microbiology 04/04/17 11:09 Gram Stain - Final Sputum - Expectorated Sputum Culture - Preliminary Gram Negative Rods Gram Positive Cocci 04/04/17 15:30 Urine Culture - Preliminary Urine, Clean Catch Med Orders - Current: Current Medications Acetaminophen (Tylenol) 650 mg PO Q4H PRN PRN Reason: Pain (Mild 1-3)/fever Hydrocodone Bitart/Acetaminophen ([place] 325-5 Mg) 1 tab PO Q4H PRN PRN Reason: Pain (moderate 4-6) Albuterol/Ipratropium (Duoneb 3.0-0.5 Mg/3 Ml) 3 ml NEB Q4H PRN PRN Reason: Shortness Of Breath/wheezing Last Admin: 04/05/17 02:39 Dose: 3 ml Bisacodyl (Dulcolax) 5 mg PO DAILY PRN PRN Reason: Constipation Diltiazem HCl (Cardizem) 60 mg GTUBE TID COUNT INCLUDES THE [facility] Last Admin: 04/04/17 21:23 Dose: 60 mg Docusate Sodium (Colace) 100 mg PO BID PRN PRN Reason: Constipation Famotidine (Pepcid) 20 mg PO BID KARINA Hydralazine HCl (Apresoline) 20 mg IVPUSH Q4H PRN PRN Reason: Hypertension Hydrocortisone Sodium Succinate (Solu-Cortef) 100 mg IVPUSH Q6H KARINA Last Admin: 04/05/17 04:16 Dose: 100 mg Hydromorphone HCl (Dilaudid) 0.25 mg IVPUSH Q2H PRN PRN Reason: Pain (severe 7-10) Diltiazem HCl 125 mg/ Sodium (Chloride) 125 mls @ 10 mls/hr IV TITRATE KARINA; 10 MG/HR PRN Reason: Protocol Last Titration: 04/04/17 11:39 Dose: 0 mg/hr, 0 mls/hr Ampicillin Sodium/Sulbactam (Sodium 1.5 gm/ Sodium Chloride) 100 mls @ 200 mls/ hr IV Q6H KARINA Last Admin: 04/05/17 07:39 Dose: 200 mls/hr Levofloxacin/Dextrose 750 mg/ (Premix) 150 mls @ 100 mls/hr IV Q24H KARINA Promethazine HCl 12.5 mg/ (Sodium Chloride) 50.5 mls @ 100 mls/hr IV Q6H PRN PRN Reason: Nausea/Vomiting Norepinephrine Bitartrate 4 mg (/ Dextrose/Water) 250 mls @ 7.5 mls/hr IV TITRATE KARINA; 2 MCG/MIN PRN Reason: Protocol Last Titration: 04/04/17 17:30 Dose: 1 mcg/min, 3.75 mls/hr Sodium Chloride (Normal Saline) 1,000 mls @ 75 mls/hr IV ASDIRECTED KARINA Last Admin: 04/05/17 04:24 Dose: 75 mls/hr Magnesium Sulfate 2 gm/ Premix 50 mls @ 25 mls/hr IV ONETIME ONE Stop: 04/05/17 09:59 Lorazepam (Ativan) 1 mg IV Q6H PRN PRN Reason: Anxiety Magnesium Sulfate (Pharmacy To Dose - Magnesium Replacement) 0 dose .XX ASDIRECTED PRN PRN Reason: RX TO WATCH MAG LEVELS Metoprolol Tartrate (Lopressor) 5 mg IVPUSH Q4H PRN PRN Reason: Tachycardia Last Admin: 04/05/17 06:35 Dose: 5 mg Metoprolol Tartrate (Lopressor) 25 mg GTUBE TID COUNT INCLUDES THE [facility] Last Admin: 04/04/17 21:22 Dose: 25 mg Ondansetron HCl (Zofran) 4 mg IV Q6H PRN PRN Reason: Nausea/Vomiting Isosource 1.5 Damon (Liquid Tube Feeding) 0 each GTUBE ACDINNER COUNT INCLUDES THE [facility] Last Admin: 04/04/17 16:51 Dose: 325 each Isosource 1.5 Damon (Liquid Tube Feeding) 0 each GTUBE ACBREAKFAST KARINA Isosource 1.5 Damon (Liquid Tube Feeding) 0 each GTUBE ACLUNCH COUNT INCLUDES THE [facility] Polyethylene Glycol (Miralax) 17 gm PO DAILY PRN PRN Reason: Constipation Potassium Chloride (Pharmacy To Dose - Potassium Replacement) 0 dose .XX ASDIRECTED PRN PRN Reason: RX TO WATCH K LEVELS Saccharomyces Boulardii (Florastor) 250 mg PO BID COUNT INCLUDES THE [facility] Last Admin: 04/04/17 21:24 Dose: 250 mg Senna/Docusate Sodium (Senna Plus) 1 tab PO BID PRN PRN Reason: Constipation Temazepam (Restoril) 7.5 mg PO BEDTIME PRN PRN Reason: Sleep Warfarin Sodium (Coumadin) 2.5 mg PO MoWeFr@1800 KARINA Warfarin Sodium (Coumadin) 5 mg PO SuTuThSa@1800 COUNT INCLUDES THE [facility] Last Admin: 04/04/17 17:58 Dose: 5 mg Discontinued Medications Acetaminophen (Tylenol Solution) 650 mg PO ONETIME ONE Stop: 04/04/17 09:27 Last Admin: 04/04/17 10:30 Dose: 650 mg Bumetanide (Bumex) 1 mg IVPUSH ONETIME ONE Stop: 04/04/17 14:36 Last Admin: 04/04/17 15:22 Dose: 1 mg Diltiazem HCl (Diltiazem) 10 mg IVPUSH ONETIME STA Stop: 04/04/17 07:41 Last Admin: 04/04/17 07:52 Dose: 10 mg Sodium Chloride (Normal Saline) 1,000 mls @ 999 mls/hr IV ONETIME ONE Stop: 04/04/17 08:22 Last Admin: 04/04/17 07:30 Dose: 999 mls/hr Ampicillin Sodium/Sulbactam (Sodium 3 gm/ Sodium Chloride) 100 mls @ 200 mls/ hr IV ONETIME ONE Stop: 04/04/17 08:32 Last Admin: 04/04/17 09:00 Dose: 200 mls/hr Sodium Chloride (Normal Saline) 1,000 mls @ 250 mls/hr IV ASDIRECTED COUNT INCLUDES THE [facility] Last Admin: 04/04/17 08:50 Dose: 250 mls/hr Levofloxacin/Dextrose 750 mg/ (Premix) 150 mls @ 100 mls/hr IV ONETIME ONE Stop: 04/04/17 11:58 Last Admin: 04/04/17 11:42 Dose: 100 mls/hr Sodium Chloride (Normal Saline) 1,000 mls @ 999 mls/hr IV .BOLUS ONE Stop: 04/04/17 11:30 Last Admin: 04/04/17 11:41 Dose: 999 mls/hr Sodium Chloride (Normal Saline) 500 mls @ 999 mls/hr IV .BOLUS ONE Stop: 04/04/17 12:29 Last Admin: 04/04/17 12:07 Dose: 999 mls/hr Non-Formulary Medication (Acetaminophen) 500 mg PO Q4H PRN PRN Reason: Fever Saccharomyces Boulardii (Florastor) 500 mg PO NOW STA Stop: 04/04/17 10:45 Last Admin: 04/04/17 11:42 Dose: 500 mg - Exam Quality Assessment: Supplemental Oxygen General: Alert, Oriented, Cooperative, No Acute Distress HEENT: Pupils Equal, Pupils Reactive, EOMI, Mucous Membr. Moist/[place] Neck: Supple, Trachea Midline, No JVD, Other (disfigured right sided neck ) Lungs: Normal Respiratory Effort, Decreased Breath Sounds Cardiovascular: Irregular Rhythm GI/Abdominal Exam: Normal Bowel Sounds, Soft, Non-Tender, No Organomegaly, No Distention, No Abnormal Bruit, Other (PEG tube on abdomen) (Male) Exam: Deferred Back Exam: Normal Inspection, Decreased Range of Motion Extremities: Normal Inspection, Normal Range of Motion, Non-Tender, No Pedal Edema, Normal Capillary Refill Peripheral Pulses: 2+: Dorsalis Pedis (L), Dorsalis Pedis (R) Skin: Warm, Dry, Intact Neurological: No New Focal Deficit Psy/Mental Status: Alert, Normal Affect, Normal Mood - Problem List Review Problem List Initiated/Reviewed/Updated: Yes - My Orders Last 24 Hours: My Active Orders 04/04/17 07:24 CORTISOL [REF] Stat 04/04/17 14:45 Sodium Chloride 0.9% [Normal Saline] 1,000 ml IV ASDIRECTED 04/04/17 16:00 Hydrocortisone Sod Succinate [Solu-CORTEF] 100 mg IVPUSH Q6H 04/05/17 07:00 EKG 12 Lead [EKG Documentation Completion] [RC] AM 04/05/17 08:00 Magnesium Sulfate/Water [Magnesium Sulfate 2 GM in Water 50 ML] 2 gm Premix Bag 1 bag IV ONETIME 04/05/17 09:00 Famotidine [Pepcid] 20 mg PO BID - Plan Plan:: Assessment/Plan: Acute: Septic Shock 2/2 GP Organism: Strep Pneumoniae - 2/2 PNA - Documented profound hypotension with the following BPs: 77/61, 82/61, 80/ 60 and 84/61 mmHg; now stable - Minimally improved with fluid challenge - He was on cardizem drip for his A-fib RVR - Received 1L NS to improve volume status - Now off cardizem and levophed drip - Discontinue solucortef 100 mg IV Q6 - Continue IV Unasyn and IV Levaquin daily - Monitor for hemodynamic instability Bacteremia - 2/2 Strep Pneumonia - Will repeat blood culture in AM - Continue current treatment - Consider ATB changes in AM if WBC/CRP does not improve PNA - Bilateral infiltrate on CXR - Risk factor: Dysphagia/Chronic Cough/Aspiration and GERD - WBC is 21K--> 24K and CRP is 16.2--> 31.6 - Continue IV ATB as above; may make adjust in am if WBC or CRP continue to get worse - Sputum Cx: Positive for GPC and GNR ([place] Pseudomonas and Strep Pneumoniae) - Continue Supplemental O2, Bronchodilators and Routine RT care - Follow up CXR in am Atrial Fibrillation with RVR, HR now controlled - Likely induced by Sepsis - INR is therapeutic at 3.01; continue warfarin - Continue home rate control meds with PRN Lopressor 5 mg IVP Q4 - Daily INR Leukocytosis, Slightly Worse - WBC of 21K --> 24K - 2/2 PNA - Treat underlying cause - Continue to Monitor Resolved: Acute Kidney Injury, Resolved - Likely 2/2 intravascular Volume Depletion from poor fluid intake - Baseline eGFR is > 60; he is 50 on admission; eGFR now at baseline - Avoid nephrotoxic agent if possible - Monitor urine output and vitals Lactic Acidosis - LA is 3.0---> 1.2 - 2/2 Septic shock - Follow up level at 1300 - Continue with hydration and pressure support drip Chronic: Impaired Vision Hx/o PAF on Warfarin GERD, H2B BPH, Flomax Hx/o Throat Cancer S/p Surgical Resection, Stable Hx/o Aspiration PNA Dysphagia S/p PEG Tube Placement Plan: He looks clinically much better Routine AM Labs Continue PT/OT/RT Cortisol level normal [employer]ERK eval Aspiration Precaution DVT/GI PPx: Warfarin and H2B Diet as per PEG Tube home regimen SW/CM for d/c planning Encourage to ambulate as tolerated Additional orders as above Code status: 1 Prognosis remains serious-critical
[2017-04-05] MEDS ORDERED: Magnesium Sulfate/Water 2 GM in Premix Bag 1 BAG IV ONE (08:00)
[2017-04-05] MEDS: Diltiazem IR 60 MG Tab GTUBE SCH ×3 (08:45→20:31)
[2017-04-05] MEDS: Metoprolol Tartrate 25 MG Tab GTUBE SCH ×3 (09:59→20:30)
[2017-04-05] MEDS: Famotidine 20 MG Tab PO SCH ×2 (09:59→20:30)
[2017-04-05] MEDS: Saccharomyces Boulardii (Probiotic) 250 MG Cap PO SCH ×2 (09:59→20:31)
[2017-04-05] MEDS: Levofloxacin/Dextrose 5%-Water 750 MG in Premix Bag 1 BAG IV SCH (11:00)
[2017-04-05] MEDS: Warfarin 2.5 MG Tab PO SCH (17:57)
[2017-04-06] MEDS: Ampicillin/Sulbactam Na 1.5 GM in Sodium Chloride 0.9% 100 ML IV SCH ×2 (02:18→08:40)
[2017-04-06] MEDS: Sodium Chloride 0.9% 1,000 ML IV SCH ×2 (07:14→21:57)
--- NOTE | 2017-04-06 09:08 | CR ---
Chest: Frontal view of the chest was obtained. Comparison: Prior chest x-ray of 04/04/17. Heart appears somewhat enlarged. Tortuous thoracic aorta is noted. Mild asymmetric increased density within the left lung base is seen showing slight improvement from previous exam. Increased density within the left upper lobe is seen. Pulmonary vessels are minimally increased. Slight atelectasis is noted within the right lung base. Bony structures are osteopenic. Old healed left-sided rib fractures are noted. Impression: 1. Improved density within the left lung base. Findings presumably represent slightly improved pneumonia. 2. Increased density within the left upper chest as an interval change most likely representing atelectasis although differential includes new area of pneumonia and aspiration. 3. Stable cardiomegaly. Pulmonary vessels are slightly congested which remain stable. Diagnostic code #3
[2017-04-06] MEDS: Famotidine 20 MG Tab PO SCH ×2 (09:35→20:09)
[2017-04-06] MEDS: Metoprolol Tartrate 25 MG Tab GTUBE SCH ×3 (09:35→20:09)
[2017-04-06] MEDS: Saccharomyces Boulardii (Probiotic) 250 MG Cap PO SCH ×2 (09:35→20:09)
[2017-04-06] MEDS: Diltiazem IR 60 MG Tab GTUBE SCH ×3 (09:35→20:08)
--- NOTE | 2017-04-06 10:52 | PCM.PN ---
<DonnaTrish townsend - Last Filed: 04/06/17 10:34> - General Info Date of Service: 04/06/17 Admission Dx/Problem (Free Text): Sepsis and Atrial Fibrillation with RVR Subjective Update: Follow Up Functional Status: Reports: Pain Controlled, Tolerating Diet, Ambulating, Urinating - Review of Systems General: Reports: No Symptoms HEENT: Reports: No Symptoms Pulmonary: Reports: Pleuritic Chest Pain, Cough Cardiovascular: Reports: No Symptoms Gastrointestinal: Reports: Diarrhea, Difficulty Swallowing Genitourinary: Reports: No Symptoms Musculoskeletal: Reports: No Symptoms Skin: Reports: No Symptoms Neurological: Reports: No Symptoms Psychiatric: Reports: No Symptoms - Patient Data Vitals - Most Recent: Last Vital Signs Temp 98.1 F 04/06/17 08:00 Pulse 116 H 04/06/17 09:35 Resp 18 04/06/17 08:00 BP 134/94 H 04/06/17 09:35 Pulse Ox 95 04/06/17 08:00 Weight - Most Recent: 78.528 kg I&O - Last 24 Hours: Intake & Output 04/05/17 04/06/17 04/06/17 22:59 06:59 14:59 Intake Total 2267 930 Output Total 250 Balance 2017 930 Lab Results Last 24 Hours: Laboratory Results - last 24 hr 04/05/17 04/05/17 04/06/17 Range/Units 15:48 15:48 05:38 WBC 21.17 H (4.23-9.07) K/mm3 RBC 3.35 L (4.63-6.08) M/mm3 Hgb 11.2 L (13.7-17.5) gm/L Hct 33.6 L (40.1-51.0) % MCV 100.3 H (79.0-92.2) fl MCH 33.4 H (25.7-32.2) pg MCHC 33.3 (32.2-35.5) g/dl RDW Std Deviation 47.4 H (35.1-43.9) fL Plt Count 199 (163-337) K/mm3 MPV 11.7 (9.4-12.3) fl Neut % (Auto) 89.3 H (34.0-67.9) % Lymph % (Auto) 5.1 L (21.8-53.1) % [place] % (Auto) 5.4 (5.3-12.2) % Eos % (Auto) 0 L (0.8-7.0) Baso % (Auto) 0.0 L (0.1-1.2) % Neut # (Auto) 18.90 H (1.78-5.38) K/mm3 Lymph # (Auto) 1.07 L (1.32-3.57) K/mm3 [place] # (Auto) 1.14 H (0.30-0.82) K/mm3 Eos # (Auto) 0.00 L (0.04-0.54) K/mm3 Baso # (Auto) 0.01 (0.01-0.08) K/mm3 Manual Slide Review Abnormal smear PT (8.0-13.0) SECONDS INR Sodium (136-145) mEq/L Potassium 4.0 (3.5-5.1) mEq/L Chloride (98-107) mEq/L Carbon Dioxide (21-32) mEq/L Anion Gap (5-15) BUN (7-18) mg/dL Creatinine (0.7-1.3) mg/dL Est Cr Clr Drug Dosing mL/min Estimated GFR (MDRD) (>60) mL/min BUN/Creatinine Ratio (14-18) Glucose (80-115) mg/dL Calcium (8.5-10.1) mg/dL Magnesium 2.1 (1.8-2.4) mg/dl C-Reactive Protein (<1.0) mg/dL 04/06/17 04/06/17 Range/Units 05:38 05:38 WBC (4.23-9.07) K/mm3 RBC (4.63-6.08) M/mm3 Hgb (13.7-17.5) gm/L Hct (40.1-51.0) % MCV (79.0-92.2) fl MCH (25.7-32.2) pg MCHC (32.2-35.5) g/dl RDW Std Deviation (35.1-43.9) fL Plt Count (163-337) K/mm3 MPV (9.4-12.3) fl Neut % (Auto) (34.0-67.9) % Lymph % (Auto) (21.8-53.1) % [place] % (Auto) (5.3-12.2) % Eos % (Auto) (0.8-7.0) Baso % (Auto) (0.1-1.2) % Neut # (Auto) (1.78-5.38) K/mm3 Lymph # (Auto) (1.32-3.57) K/mm3 [place] # (Auto) (0.30-0.82) K/mm3 Eos # (Auto) (0.04-0.54) K/mm3 Baso # (Auto) (0.01-0.08) K/mm3 Manual Slide Review PT 22.8 H (8.0-13.0) SECONDS INR 2.00 Sodium 139 (136-145) mEq/L Potassium 3.6 (3.5-5.1) mEq/L Chloride 104 (98-107) mEq/L Carbon Dioxide 26 (21-32) mEq/L Anion Gap 12.6 (5-15) BUN 20 H (7-18) mg/dL Creatinine 0.6 L (0.7-1.3) mg/dL Est Cr Clr Drug Dosing 118.29 mL/min Estimated GFR (MDRD) > 60 (>60) mL/min BUN/Creatinine Ratio 33.3 H (14-18) Glucose 97 (80-115) mg/dL Calcium 8.3 L (8.5-10.1) mg/dL Magnesium (1.8-2.4) mg/dl C-Reactive Protein 19.0 H* (<1.0) mg/dL Wei Results Last 24 Hours: Microbiology 04/04/17 15:30 Urine Culture - Final Urine, Clean Catch MIXED VENKAT SUGGESTIVE OF CONTAMINATION. 04/04/17 11:09 Gram Stain - Final Sputum - Expectorated Sputum Culture - Preliminary Pseudomonas Aeruginosa Staphylococcus Aureus Streptococcus Pneumoniae Med Orders - Current: Current Medications Acetaminophen (Tylenol) 650 mg PO Q4H PRN PRN Reason: Pain (Mild 1-3)/fever Hydrocodone Bitart/Acetaminophen ([place] 325-5 Mg) 1 tab PO Q4H PRN PRN Reason: Pain (moderate 4-6) Albuterol/Ipratropium (Duoneb 3.0-0.5 Mg/3 Ml) 3 ml NEB Q4H PRN PRN Reason: Shortness Of Breath/wheezing Last Admin: 04/05/17 02:39 Dose: 3 ml Bisacodyl (Dulcolax) 5 mg PO DAILY PRN PRN Reason: Constipation Diltiazem HCl (Cardizem) 60 mg GTUBE TID [facility] Last Admin: 04/06/17 09:35 Dose: 60 mg Docusate Sodium (Colace) 100 mg PO BID PRN PRN Reason: Constipation Famotidine (Pepcid) 20 mg PO BID [facility] Last Admin: 04/06/17 09:35 Dose: 20 mg Hydralazine HCl (Apresoline) 20 mg IVPUSH Q4H PRN PRN Reason: Hypertension Hydromorphone HCl (Dilaudid) 0.25 mg IVPUSH Q2H PRN PRN Reason: Pain (severe 7-10) Diltiazem HCl 125 mg/ Sodium (Chloride) 125 mls @ 10 mls/hr IV TITRATE KARINA; 10 MG/HR PRN Reason: Protocol Last Titration: 04/04/17 11:39 Dose: 0 mg/hr, 0 mls/hr Ampicillin Sodium/Sulbactam (Sodium 1.5 gm/ Sodium Chloride) 100 mls @ 200 mls/ hr IV Q6H [facility] Last Admin: 04/06/17 08:40 Dose: 200 mls/hr Levofloxacin/Dextrose 750 mg/ (Premix) 150 mls @ 100 mls/hr IV Q24H [facility] Last Admin: 04/05/17 11:00 Dose: 100 mls/hr Promethazine HCl 12.5 mg/ (Sodium Chloride) 50.5 mls @ 100 mls/hr IV Q6H PRN PRN Reason: Nausea/Vomiting Norepinephrine Bitartrate 4 mg (/ Dextrose/Water) 250 mls @ 7.5 mls/hr IV TITRATE KARINA; 2 MCG/MIN PRN Reason: Protocol Last Titration: 04/05/17 09:15 Dose: 0 mcg/min, 0 mls/hr Sodium Chloride (Normal Saline) 1,000 mls @ 75 mls/hr IV ASDIRECTED [facility] Last Admin: 04/06/17 07:14 Dose: 75 mls/hr Lorazepam (Ativan) 1 mg IV Q6H PRN PRN Reason: Anxiety Magnesium Sulfate (Pharmacy To Dose - Magnesium Replacement) 0 dose .XX ASDIRECTED PRN PRN Reason: RX TO WATCH MAG LEVELS Metoprolol Tartrate (Lopressor) 5 mg IVPUSH Q4H PRN PRN Reason: Tachycardia Last Admin: 04/05/17 06:35 Dose: 5 mg Metoprolol Tartrate (Lopressor) 25 mg GTUBE TID [facility] Last Admin: 04/06/17 09:35 Dose: 25 mg Ondansetron HCl (Zofran) 4 mg IV Q6H PRN PRN Reason: Nausea/Vomiting Polyethylene Glycol (Miralax) 17 gm PO DAILY PRN PRN Reason: Constipation Potassium Chloride (Pharmacy To Dose - Potassium Replacement) 0 dose .XX ASDIRECTED PRN PRN Reason: RX TO WATCH K LEVELS Saccharomyces Boulardii (Florastor) 250 mg PO BID [facility] Last Admin: 04/06/17 09:35 Dose: 250 mg Senna/Docusate Sodium (Senna Plus) 1 tab PO BID PRN PRN Reason: Constipation Temazepam (Restoril) 7.5 mg PO BEDTIME PRN PRN Reason: Sleep Warfarin Sodium (Coumadin) 2.5 mg PO MoWeFr@1800 [facility] Last Admin: 04/05/17 17:57 Dose: Not Given Warfarin Sodium (Coumadin) 5 mg PO SuTuThSa@1800 [facility] Last Admin: 04/04/17 17:58 Dose: 5 mg Discontinued Medications Acetaminophen (Tylenol Solution) 650 mg PO ONETIME ONE Stop: 04/04/17 09:27 Last Admin: 04/04/17 10:30 Dose: 650 mg Bumetanide (Bumex) 1 mg IVPUSH ONETIME ONE Stop: 04/04/17 14:36 Last Admin: 04/04/17 15:22 Dose: 1 mg Diltiazem HCl (Diltiazem) 10 mg IVPUSH ONETIME STA Stop: 04/04/17 07:41 Last Admin: 04/04/17 07:52 Dose: 10 mg Hydrocortisone Sodium Succinate (Solu-Cortef) 100 mg IVPUSH Q6H [facility] Last Admin: 04/05/17 10:00 Dose: 100 mg Sodium Chloride (Normal Saline) 1,000 mls @ 999 mls/hr IV ONETIME ONE Stop: 04/04/17 08:22 Last Admin: 04/04/17 07:30 Dose: 999 mls/hr Ampicillin Sodium/Sulbactam (Sodium 3 gm/ Sodium Chloride) 100 mls @ 200 mls/ hr IV ONETIME ONE Stop: 04/04/17 08:32 Last Admin: 04/04/17 09:00 Dose: 200 mls/hr Sodium Chloride (Normal Saline) 1,000 mls @ 250 mls/hr IV ASDIRECTED [facility] Last Admin: 04/04/17 08:50 Dose: 250 mls/hr Levofloxacin/Dextrose 750 mg/ (Premix) 150 mls @ 100 mls/hr IV ONETIME ONE Stop: 04/04/17 11:58 Last Admin: 04/04/17 11:42 Dose: 100 mls/hr Sodium Chloride (Normal Saline) 1,000 mls @ 999 mls/hr IV .BOLUS ONE Stop: 04/04/17 11:30 Last Admin: 04/04/17 11:41 Dose: 999 mls/hr Sodium Chloride (Normal Saline) 500 mls @ 999 mls/hr IV .BOLUS ONE Stop: 04/04/17 12:29 Last Admin: 04/04/17 12:07 Dose: 999 mls/hr Magnesium Sulfate 2 gm/ Premix 50 mls @ 25 mls/hr IV ONETIME ONE Stop: 04/05/17 09:59 Last Admin: 04/05/17 08:33 Dose: 25 mls/hr Non-Formulary Medication (Acetaminophen) 500 mg PO Q4H PRN PRN Reason: Fever Isosource 1.5 Damon (Liquid Tube Feeding) 0 each GTUBE ACDINNER [facility] Last Admin: 04/04/17 16:51 Dose: 325 each Isosource 1.5 Damon (Liquid Tube Feeding) 0 each GTUBE ACBREAKFAST KARINA Isosource 1.5 Damon (Liquid Tube Feeding) 0 each GTUBE ACLUNCH [facility] Saccharomyces Boulardii (Florastor) 500 mg PO NOW STA Stop: 04/04/17 10:45 Last Admin: 04/04/17 11:42 Dose: 500 mg - Exam Quality Assessment: Supplemental Oxygen General: Alert, Oriented, Cooperative, No Acute Distress HEENT: Pupils Equal, Pupils Reactive, EOMI, Mucous Membr. Moist/[place] Neck: Supple Lungs: Crackles (Located in the lung bases and left upper lobe), Wheezing ( Located in the lung bases and left upper lobe) Cardiovascular: Irregular Rhythm, Tachycardia GI/Abdominal Exam: Normal Bowel Sounds, Soft, Non-Tender, No Organomegaly, No Distention, No Abnormal Bruit, No Mass, Pelvis Stable (Male) Exam: Deferred Back Exam: Normal Inspection, Full Range of Motion Extremities: Normal Inspection, Normal Range of Motion, Non-Tender, No Pedal Edema, Normal Capillary Refill Skin: Warm, Dry, Intact Neurological: No New Focal Deficit Psy/Mental Status: Alert, Normal Affect, Normal Mood - Assessment Assessment:: Patient is a 71 yo cauc[place] male that was admitted for pneumonia with possible sepsis. Patient feels much improved since yesterday. His respiratory pain is decreased and says it is a 1/10 on the pain scale. He reports no other acute symptoms. On physical exam, respiratory auscultation reveals crackles and wheezing in the both lung bases and in the upper left lobe. Cardiac exam reveals tachycardia with an irregular pattern which would be associated with the patients history of atrial fib. Rest of focused physical exam was unremarkable. Chest X-ray done today revealed improving pneumonia with signs of an increased density the upper left lobe. Radiologist reports possible atelectasis or possible signs of a new site pneumonia or aspiration - Plan Plan:: Assessment/Plan: Acute: Septic Shock 2/2 GP Organism: Strep Pneumoniae - 2/2 PNA - Documented profound hypotension with the following BPs: 77/61, 82/61, 80/ 60 and 84/61 mmHg; now stable - Minimally improved with fluid challenge - He was on cardizem drip for his A-fib RVR - Received 1L NS to improve volume status - Now off cardizem and levophed drip - Discontinue solucortef 100 mg IV Q6 - Continue IV Unasyn and IV Levaquin daily - Monitor for hemodynamic instability Bacteremia - 2/2 Strep Pneumonia - Will repeat blood culture in AM - Continue current treatment - Consider ATB changes in AM if WBC/CRP does not improve PNA - Bilateral infiltrate on CXR - Risk factor: Dysphagia/Chronic Cough/Aspiration and GERD - WBC is 21K--> 24K--> 21.17 and CRP is 16.2--> 31.6-->19.0 - Continue IV ATB as above; may make adjust in am if WBC or CRP continue to get worse - Sputum Cx: Positive for GPC and GNR ([place] Pseudomonas and Strep Pneumoniae) - Continue Supplemental O2, Bronchodilators and Routine RT care - Follow up CXR in am Atrial Fibrillation with RVR, HR now controlled - Likely induced by Sepsis - INR is therapeutic at 3.01; continue warfarin - Continue home rate control meds with PRN Lopressor 5 mg IVP Q4 - Daily INR Leukocytosis, improving - WBC of 21K --> 24K-->21 - 2/2 PNA - Treat underlying cause - Continue to Monitor Resolved: Acute Kidney Injury, Resolved - Likely 2/2 intravascular Volume Depletion from poor fluid intake - Baseline eGFR is > 60; he is 51 on admission; eGFR now at baseline - Avoid nephrotoxic agent if possible - Monitor urine output and vitals Lactic Acidosis - LA is 3.0---> 1.2 - 2/2 Septic shock - Follow up level at 1300 - Continue with hydration and pressure support drip Chronic: Impaired Vision Hx/o PAF on Warfarin GERD, H2B BPH, Flomax Hx/o Throat Cancer S/p Surgical Resection, Stable Hx/o Aspiration PNA Dysphagia S/p PEG Tube Placement Plan: He looks clinically much better Routine AM Labs Continue PT/OT/RT Cortisol level normal [employer] eval Aspiration Precaution DVT/GI PPx: Warfarin and H2B Diet as per PEG Tube home regimen SW/CM for d/c planning Encourage to ambulate as tolerated Additional orders as above Code status: 1 Prognosis remains serious-critical <Brianne Ha T - Last Filed: 04/06/17 23:42> - General Info Functional Status: Reports: Pain Controlled, Tolerating Diet, Ambulating, Urinating - Review of Systems General: Denies: Fever, Chills HEENT: Reports: No Symptoms Pulmonary: Reports: Cough. Denies: Shortness of Breath Cardiovascular: Reports: No Symptoms Gastrointestinal: Reports: Diarrhea, Difficulty Swallowing Genitourinary: Reports: No Symptoms Musculoskeletal: Reports: No Symptoms Skin: Denies: Cyanosis, Diaphoresis, Pruritis Neurological: Denies: Difficulty Walking, Weakness, Gait Disturbance Psychiatric: Denies: No Symptoms, Confusion, Anxiety, Hallucinations Systems Review Comment:: No significant overnight or acute issues. He feels pretty good and he has no complaints. His morning labs are much improved. His vitals are stable. - Patient Data Vitals - Most Recent: Last Vital Signs Temp 36.8 C 04/06/17 15:55 Pulse 97 04/06/17 20:09 Resp 16 04/06/17 15:55 BP 130/84 04/06/17 20:09 Pulse Ox 93 L 04/06/17 20:08 I&O - Last 24 Hours: Intake & Output 04/06/17 04/06/17 04/07/17 14:59 22:59 06:59 Intake Total 2315 Output Total 950 Balance 1365 Lab Results Last 24 Hours: Laboratory Results - last 24 hr 04/06/17 04/06/17 04/06/17 Range/Units 05:38 05:38 05:38 WBC 21.17 H (4.23-9.07) K/mm3 RBC 3.35 L (4.63-6.08) M/mm3 Hgb 11.2 L (13.7-17.5) gm/L Hct 33.6 L (40.1-51.0) % MCV 100.3 H (79.0-92.2) fl MCH 33.4 H (25.7-32.2) pg MCHC 33.3 (32.2-35.5) g/dl RDW Std Deviation 47.4 H (35.1-43.9) fL Plt Count 199 (163-337) K/mm3 MPV 11.7 (9.4-12.3) fl Neut % (Auto) 89.3 H (34.0-67.9) % Lymph % (Auto) 5.1 L (21.8-53.1) % [place] % (Auto) 5.4 (5.3-12.2) % Eos % (Auto) 0 L (0.8-7.0) Baso % (Auto) 0.0 L (0.1-1.2) % Neut # (Auto) 18.90 H (1.78-5.38) K/mm3 Lymph # (Auto) 1.07 L (1.32-3.57) K/mm3 [place] # (Auto) 1.14 H (0.30-0.82) K/mm3 Eos # (Auto) 0.00 L (0.04-0.54) K/mm3 Baso # (Auto) 0.01 (0.01-0.08) K/mm3 Manual Slide Review Abnormal smear PT 22.8 H (8.0-13.0) SECONDS INR 2.00 Sodium 139 (136-145) mEq/L Potassium 3.6 (3.5-5.1) mEq/L Chloride 104 (98-107) mEq/L Carbon Dioxide 26 (21-32) mEq/L Anion Gap 12.6 (5-15) BUN 20 H (7-18) mg/dL Creatinine 0.6 L (0.7-1.3) mg/dL Est Cr Clr Drug Dosing 118.29 mL/min Estimated GFR (MDRD) > 60 (>60) mL/min BUN/Creatinine Ratio 33.3 H (14-18) Glucose 97 (80-115) mg/dL Calcium 8.3 L (8.5-10.1) mg/dL C-Reactive Protein 19.0 H* (<1.0) mg/dL Wei Results Last 24 Hours: Microbiology 04/04/17 15:30 Urine Culture - Final Urine, Clean Catch MIXED VENKAT SUGGESTIVE OF CONTAMINATION. 04/04/17 11:09 Gram Stain - Final Sputum - Expectorated Sputum Culture - Preliminary Pseudomonas Aeruginosa Staphylococcus Aureus Streptococcus Pneumoniae Med Orders - Current: Current Medications Acetaminophen (Tylenol) 650 mg PO Q4H PRN PRN Reason: Pain (Mild 1-3)/fever Last Admin: 04/06/17 20:09 Dose: 650 mg Hydrocodone Bitart/Acetaminophen ([place] 325-5 Mg) 1 tab PO Q4H PRN PRN Reason: Pain (moderate 4-6) Albuterol/Ipratropium (Duoneb 3.0-0.5 Mg/3 Ml) 3 ml NEB Q4H PRN PRN Reason: Shortness Of Breath/wheezing Last Admin: 04/05/17 02:39 Dose: 3 ml Bisacodyl (Dulcolax) 5 mg PO DAILY PRN PRN Reason: Constipation Diltiazem HCl (Cardizem) 60 mg GTUBE TID [facility] Last Admin: 04/06/17 20:08 Dose: 60 mg Docusate Sodium (Colace) 100 mg PO BID PRN PRN Reason: Constipation Famotidine (Pepcid) 20 mg PO BID [facility] Last Admin: 04/06/17 20:09 Dose: 20 mg Hydralazine HCl (Apresoline) 20 mg IVPUSH Q4H PRN PRN Reason: Hypertension Hydromorphone HCl (Dilaudid) 0.25 mg IVPUSH Q2H PRN PRN Reason: Pain (severe 7-10) Promethazine HCl 12.5 mg/ (Sodium Chloride) 50.5 mls @ 100 mls/hr IV Q6H PRN PRN Reason: Nausea/Vomiting Sodium Chloride (Normal Saline) 1,000 mls @ 75 mls/hr IV ASDIRECTED [facility] Last Admin: 04/06/17 21:57 Dose: 75 mls/hr Piperacillin Sod/Tazobactam (Sod 4.5 gm/ Dextrose/Water) 100 mls @ 25 mls/hr IV Q8H [facility] Last Admin: 04/06/17 21:57 Dose: 25 mls/hr Lorazepam (Ativan) 1 mg IV Q6H PRN PRN Reason: Anxiety Magnesium Sulfate (Pharmacy To Dose - Magnesium Replacement) 0 dose .XX ASDIRECTED PRN PRN Reason: RX TO WATCH MAG LEVELS Metoprolol Tartrate (Lopressor) 5 mg IVPUSH Q4H PRN PRN Reason: Tachycardia Last Admin: 04/05/17 06:35 Dose: 5 mg Metoprolol Tartrate (Lopressor) 25 mg GTUBE TID [facility] Last Admin: 04/06/17 20:09 Dose: 25 mg Ondansetron HCl (Zofran) 4 mg IV Q6H PRN PRN Reason: Nausea/Vomiting Polyethylene Glycol (Miralax) 17 gm PO DAILY PRN PRN Reason: Constipation Potassium Chloride (Pharmacy To Dose - Potassium Replacement) 0 dose .XX ASDIRECTED PRN PRN Reason: RX TO WATCH K LEVELS Saccharomyces Boulardii (Florastor) 250 mg PO BID [facility] Last Admin: 04/06/17 20:09 Dose: 250 mg Senna/Docusate Sodium (Senna Plus) 1 tab PO BID PRN PRN Reason: Constipation Temazepam (Restoril) 7.5 mg PO BEDTIME PRN PRN Reason: Sleep Warfarin Sodium (Coumadin) 2.5 mg PO MoWeFr@1800 [facility] Last Admin: 04/05/17 17:57 Dose: Not Given Warfarin Sodium (Coumadin) 5 mg PO SuTuThSa@1800 [facility] Last Admin: 04/06/17 18:18 Dose: 5 mg Discontinued Medications Acetaminophen (Tylenol Solution) 650 mg PO ONETIME ONE Stop: 04/04/17 09:27 Last Admin: 04/04/17 10:30 Dose: 650 mg Bumetanide (Bumex) 1 mg IVPUSH ONETIME ONE Stop: 04/04/17 14:36 Last Admin: 04/04/17 15:22 Dose: 1 mg Diltiazem HCl (Diltiazem) 10 mg IVPUSH ONETIME STA Stop: 04/04/17 07:41 Last Admin: 04/04/17 07:52 Dose: 10 mg Hydrocortisone Sodium Succinate (Solu-Cortef) 100 mg IVPUSH Q6H [facility] Last Admin: 04/05/17 10:00 Dose: 100 mg Sodium Chloride (Normal Saline) 1,000 mls @ 999 mls/hr IV ONETIME ONE Stop: 04/04/17 08:22 Last Admin: 04/04/17 07:30 Dose: 999 mls/hr Diltiazem HCl 125 mg/ Sodium (Chloride) 125 mls @ 10 mls/hr IV TITRATE KARINA; 10 MG/HR PRN Reason: Protocol Last Titration: 04/04/17 11:39 Dose: 0 mg/hr, 0 mls/hr Ampicillin Sodium/Sulbactam (Sodium 3 gm/ Sodium Chloride) 100 mls @ 200 mls/ hr IV ONETIME ONE Stop: 04/04/17 08:32 Last Admin: 04/04/17 09:00 Dose: 200 mls/hr Sodium Chloride (Normal Saline) 1,000 mls @ 250 mls/hr IV ASDIRECTED [facility] Last Admin: 04/04/17 08:50 Dose: 250 mls/hr Ampicillin Sodium/Sulbactam (Sodium 1.5 gm/ Sodium Chloride) 100 mls @ 200 mls/ hr IV Q6H [facility] Last Admin: 04/06/17 08:40 Dose: 200 mls/hr Levofloxacin/Dextrose 750 mg/ (Premix) 150 mls @ 100 mls/hr IV ONETIME ONE Stop: 04/04/17 11:58 Last Admin: 04/04/17 11:42 Dose: 100 mls/hr Levofloxacin/Dextrose 750 mg/ (Premix) 150 mls @ 100 mls/hr IV Q24H [facility] Last Admin: 04/06/17 11:43 Dose: Not Given Sodium Chloride (Normal Saline) 1,000 mls @ 999 mls/hr IV .BOLUS ONE Stop: 04/04/17 11:30 Last Admin: 04/04/17 11:41 Dose: 999 mls/hr Norepinephrine Bitartrate 4 mg (/ Dextrose/Water) 250 mls @ 7.5 mls/hr IV TITRATE KARINA; 2 MCG/MIN PRN Reason: Protocol Last Titration: 04/05/17 09:15 Dose: 0 mcg/min, 0 mls/hr Sodium Chloride (Normal Saline) 500 mls @ 999 mls/hr IV .BOLUS ONE Stop: 04/04/17 12:29 Last Admin: 04/04/17 12:07 Dose: 999 mls/hr Magnesium Sulfate 2 gm/ Premix 50 mls @ 25 mls/hr IV ONETIME ONE Stop: 04/05/17 09:59 Last Admin: 04/05/17 08:33 Dose: 25 mls/hr Piperacillin Sod/Tazobactam (Sod 4.5 gm/ Dextrose/Water) 100 mls @ 200 mls/hr IV ONETIME ONE Stop: 04/06/17 14:59 Last Admin: 04/06/17 15:07 Dose: 200 mls/hr Non-Formulary Medication (Acetaminophen) 500 mg PO Q4H PRN PRN Reason: Fever Isosource 1.5 Damon (Liquid Tube Feeding) 0 each GTUBE ACDINNER [facility] Last Admin: 04/04/17 16:51 Dose: 325 each Isosource 1.5 Damon (Liquid Tube Feeding) 0 each GTUBE ACBREAKFAST [facility] Last Admin: 04/06/17 20:28 Dose: Not Given Isosource 1.5 Damon (Liquid Tube Feeding) 0 each GTUBE ACLUNCH [facility] Saccharomyces Boulardii (Florastor) 500 mg PO NOW STA Stop: 04/04/17 10:45 Last Admin: 04/04/17 11:42 Dose: 500 mg - Exam Quality Assessment: Supplemental Oxygen (1L NC) General: Alert, Oriented, Cooperative, No Acute Distress HEENT: Pupils Equal, Pupils Reactive, EOMI, Mucous Membr. Moist/[place] Neck: Supple Lungs: Normal Respiratory Effort, Decreased Breath Sounds, Crackles, Rhonchi Cardiovascular: Irregular Rhythm, Tachycardia GI/Abdominal Exam: Normal Bowel Sounds, Soft, Non-Tender, No Organomegaly, No Distention, No Abnormal Bruit, No Mass, Other (PEG tube) (Male) Exam: Deferred Back Exam: Normal Inspection, Full Range of Motion Extremities: Normal Inspection, Normal Range of Motion, Non-Tender, No Pedal Edema, Normal Capillary Refill Peripheral Pulses: 2+: Dorsalis Pedis (L), Dorsalis Pedis (R) Skin: Warm, Dry, Intact Neurological: No New Focal Deficit Psy/Mental Status: Alert, Normal Affect, Normal Mood - Problem List Review Problem List Initiated/Reviewed/Updated: Yes - My Orders Last 24 Hours: My Active Orders 04/06/17 09:25 Patient Status [ADT] Routine 04/06/17 09:59 Incentive Spirometry [RT Incentive Spirometry] [RC] ASDIRECTED 04/06/17 22:30 Piperacillin/Tazobactam [Zosyn] 4.5 gm Dextrose 5% in Water 100 ml IV Q8H - Plan Plan:: Assessment/Plan: Acute: Bacteremia - 2/2 Strep Pneumonia - Pharmacy to make changes on antibiotic - Repeat blood culture in AM - Continue current treatment PNA, Improving - Bilateral infiltrate on CXR - Risk factor: Dysphagia/Chronic Cough/Aspiration and GERD - WBC is 21K--> 24K--> 21.17 and CRP is 16.2--> 31.6-->19.0 - IV ATB for pharmacy to make adjustment - Sputum Cx: Positive for Pseudomonas Aeruginosa, Staph Aureus and Strep Pneumoniae - Sensitivity only for Pseudomonas - Continue Supplemental O2, Bronchodilators and Routine RT care - Follow up CXR report reads: improved density within the left lung base. Increased density within the left upper chest as an interval change stable cardiomegaly. Stable pulmonary congestion. - IS as directed Atrial Fibrillation with RVR, HR now controlled - Induced by Sepsis - INR is therapeutic at 2.0; continue warfarin - Continue home rate control meds with PRN Lopressor 5 mg IVP Q4 - Daily INR Leukocytosis, Continues to improve - WBC of 21K --> 24K--> 21 - 2/2 PNA - Treat underlying cause - Continue to Monitor Resolved: Acute Kidney Injury, Resolved - Likely 2/2 intravascular Volume Depletion from poor fluid intake - Baseline eGFR is > 60; he is 50 on admission; eGFR now at baseline - Avoid nephrotoxic agent if possible - Monitor urine output and vitals Lactic Acidosis - LA is 3.0---> 1.2 - 2/2 Septic shock - Follow up level at 1300 - Continue with hydration and pressure support drip Septic Shock 2/2 GP Organism: Strep Pneumoniae - 2/2 PNA - Documented profound hypotension with the following BPs: 77/61, 82/61, 80/ 60 and 84/61 mmHg; now stable - Minimally improved with fluid challenge - He was on cardizem drip for his A-fib RVR - Received 1L NS to improve volume status - Now off cardizem and levophed drip - Discontinue solucortef 100 mg IV Q6 - Continue IV Unasyn and IV Levaquin daily - Monitor for hemodynamic instability Chronic: Impaired Vision Hx/o PAF on Warfarin GERD, H2B BPH, Flomax Hx/o Throat Cancer S/p Surgical Resection, Stable Hx/o Aspiration PNA Dysphagia S/p PEG Tube Placement Plan: He is clinically stable Transfer to Med-Surg with Tele Routine AM Labs Continue PT/OT/RT Aspiration Precaution DVT/GI PPx: Warfarin and H2B Diet as per PEG Tube home regimen SW/CM for d/c planning Encourage to ambulate as tolerated Additional orders as above Code status: 1 Prognosis stable. LOS anticipate > 96 hrs pending results of repeat blood culture
[2017-04-06] MEDS: Levofloxacin/Dextrose 5%-Water 750 MG in Premix Bag 1 BAG IV SCH (11:43)
[2017-04-06] MEDS ORDERED: Piperacillin/Tazobactam 4.5 GM in Dextrose 5% in Water 100 ML IV ONE ×2 (14:30)
[2017-04-06] MEDS: Warfarin 5 MG Tab PO SCH (18:18)
[2017-04-06] MEDS: Acetaminophen 325 MG Tab PO PRN (20:09)
[2017-04-06] MEDS: Piperacillin/Tazobactam 4.5 GM in Dextrose 5% in Water 100 ML IV SCH ×2 (21:57)
[2017-04-07] MEDS: Piperacillin/Tazobactam 4.5 GM in Dextrose 5% in Water 100 ML IV SCH ×6 (06:16→23:54)
[2017-04-07] MEDS: Saccharomyces Boulardii (Probiotic) 250 MG Cap PO SCH ×2 (08:48→22:18)
[2017-04-07] MEDS: Famotidine 20 MG Tab PO SCH ×2 (08:48→22:17)
[2017-04-07] MEDS: Diltiazem IR 60 MG Tab GTUBE SCH ×3 (08:48→22:16)
[2017-04-07] MEDS: Metoprolol Tartrate 25 MG Tab GTUBE SCH ×3 (08:48→22:18)
--- NOTE | 2017-04-07 09:21 | PCM.PN ---
<Trish Story - Last Filed: 04/07/17 09:13> - General Info Date of Service: 04/07/17 Admission Dx/Problem (Free Text): Sepsis and Atrial Fibrillation with RVR Subjective Update: Follow Up Functional Status: Reports: Pain Controlled, Tolerating Diet, Ambulating, Urinating - Review of Systems General: Reports: No Symptoms HEENT: Reports: No Symptoms Pulmonary: Reports: No Symptoms Cardiovascular: Reports: No Symptoms Gastrointestinal: Reports: No Symptoms Genitourinary: Reports: No Symptoms Musculoskeletal: Reports: No Symptoms Skin: Reports: No Symptoms Neurological: Reports: No Symptoms Psychiatric: Reports: No Symptoms - Patient Data Vitals - Most Recent: Last Vital Signs Temp 97.3 F 04/07/17 07:32 Pulse 116 H 04/07/17 08:48 Resp 19 04/07/17 07:32 BP 138/90 04/07/17 08:48 Pulse Ox 92 L 04/07/17 07:32 Weight - Most Recent: 78.018 kg I&O - Last 24 Hours: Intake & Output 04/06/17 04/07/17 04/07/17 22:59 06:59 14:59 Intake Total 2315 1025 Output Total 950 525 Balance 1365 500 Lab Results Last 24 Hours: Laboratory Results - last 24 hr 04/07/17 04/07/17 04/07/17 Range/Units 06:15 06:15 06:15 WBC 9.89 H (4.23-9.07) K/mm3 RBC 3.43 L (4.63-6.08) M/mm3 Hgb 11.4 L (13.7-17.5) gm/L Hct 34.5 L (40.1-51.0) % MCV 100.6 H (79.0-92.2) fl MCH 33.2 H (25.7-32.2) pg MCHC 33.0 (32.2-35.5) g/dl RDW Std Deviation 47.9 H (35.1-43.9) fL Plt Count 196 (163-337) K/mm3 MPV 11.3 (9.4-12.3) fl Neut % (Auto) 76.5 H (34.0-67.9) % Lymph % (Auto) 11.5 L (21.8-53.1) % [place] % (Auto) 9.4 (5.3-12.2) % Eos % (Auto) 2.2 (0.8-7.0) Baso % (Auto) 0.1 (0.1-1.2) % Neut # (Auto) 7.56 H (1.78-5.38) K/mm3 Lymph # (Auto) 1.14 L (1.32-3.57) K/mm3 [place] # (Auto) 0.93 H (0.30-0.82) K/mm3 Eos # (Auto) 0.22 (0.04-0.54) K/mm3 Baso # (Auto) 0.01 (0.01-0.08) K/mm3 PT 22.8 H (8.0-13.0) SECONDS INR 2.00 Sodium 136 (136-145) mEq/L Potassium 3.5 (3.5-5.1) mEq/L Chloride 102 (98-107) mEq/L Carbon Dioxide 29 (21-32) mEq/L Anion Gap 8.5 (5-15) BUN 12 (7-18) mg/dL Creatinine 0.5 L (0.7-1.3) mg/dL Est Cr Clr Drug Dosing 141.94 mL/min Estimated GFR (MDRD) > 60 (>60) mL/min BUN/Creatinine Ratio 24.0 H (14-18) Glucose 86 (80-115) mg/dL Calcium 8.0 L (8.5-10.1) mg/dL C-Reactive Protein 13.0 H* (<1.0) mg/dL Wei Results Last 24 Hours: Microbiology 04/04/17 11:09 Gram Stain - Final Sputum - Expectorated Sputum Culture - Final Pseudomonas Aeruginosa Staphylococcus Aureus Streptococcus Pneumoniae 04/04/17 15:30 Urine Culture - Final Urine, Clean Catch MIXED VENKAT SUGGESTIVE OF CONTAMINATION. Med Orders - Current: Current Medications Acetaminophen (Tylenol) 650 mg PO Q4H PRN PRN Reason: Pain (Mild 1-3)/fever Last Admin: 04/06/17 20:09 Dose: 650 mg Hydrocodone Bitart/Acetaminophen ([place] 325-5 Mg) 1 tab PO Q4H PRN PRN Reason: Pain (moderate 4-6) Albuterol/Ipratropium (Duoneb 3.0-0.5 Mg/3 Ml) 3 ml NEB Q4H PRN PRN Reason: Shortness Of Breath/wheezing Last Admin: 04/05/17 02:39 Dose: 3 ml Bisacodyl (Dulcolax) 5 mg PO DAILY PRN PRN Reason: Constipation Diltiazem HCl (Cardizem) 60 mg GTUBE TID [facility] Last Admin: 04/07/17 08:48 Dose: 60 mg Docusate Sodium (Colace) 100 mg PO BID PRN PRN Reason: Constipation Famotidine (Pepcid) 20 mg PO BID [facility] Last Admin: 04/07/17 08:48 Dose: 20 mg Hydralazine HCl (Apresoline) 20 mg IVPUSH Q4H PRN PRN Reason: Hypertension Hydromorphone HCl (Dilaudid) 0.25 mg IVPUSH Q2H PRN PRN Reason: Pain (severe 7-10) Promethazine HCl 12.5 mg/ (Sodium Chloride) 50.5 mls @ 100 mls/hr IV Q6H PRN PRN Reason: Nausea/Vomiting Sodium Chloride (Normal Saline) 1,000 mls @ 75 mls/hr IV ASDIRECTED [facility] Last Admin: 04/06/17 21:57 Dose: 75 mls/hr Piperacillin Sod/Tazobactam (Sod 4.5 gm/ Dextrose/Water) 100 mls @ 25 mls/hr IV Q8H [facility] Last Admin: 04/07/17 06:16 Dose: 25 mls/hr Lorazepam (Ativan) 1 mg IV Q6H PRN PRN Reason: Anxiety Magnesium Sulfate (Pharmacy To Dose - Magnesium Replacement) 0 dose .XX ASDIRECTED PRN PRN Reason: RX TO WATCH MAG LEVELS Metoprolol Tartrate (Lopressor) 5 mg IVPUSH Q4H PRN PRN Reason: Tachycardia Last Admin: 04/05/17 06:35 Dose: 5 mg Metoprolol Tartrate (Lopressor) 25 mg GTUBE TID [facility] Last Admin: 04/07/17 08:48 Dose: 25 mg Ondansetron HCl (Zofran) 4 mg IV Q6H PRN PRN Reason: Nausea/Vomiting Polyethylene Glycol (Miralax) 17 gm PO DAILY PRN PRN Reason: Constipation Potassium Chloride (Pharmacy To Dose - Potassium Replacement) 0 dose .XX ASDIRECTED PRN PRN Reason: RX TO WATCH K LEVELS Saccharomyces Boulardii (Florastor) 250 mg PO BID [facility] Last Admin: 04/07/17 08:48 Dose: 250 mg Senna/Docusate Sodium (Senna Plus) 1 tab PO BID PRN PRN Reason: Constipation Temazepam (Restoril) 7.5 mg PO BEDTIME PRN PRN Reason: Sleep Warfarin Sodium (Coumadin) 2.5 mg PO MoWeFr@1800 [facility] Last Admin: 04/05/17 17:57 Dose: Not Given Warfarin Sodium (Coumadin) 5 mg PO SuTuThSa@1800 [facility] Last Admin: 04/06/17 18:18 Dose: 5 mg Discontinued Medications Acetaminophen (Tylenol Solution) 650 mg PO ONETIME ONE Stop: 04/04/17 09:27 Last Admin: 04/04/17 10:30 Dose: 650 mg Bumetanide (Bumex) 1 mg IVPUSH ONETIME ONE Stop: 04/04/17 14:36 Last Admin: 04/04/17 15:22 Dose: 1 mg Diltiazem HCl (Diltiazem) 10 mg IVPUSH ONETIME STA Stop: 04/04/17 07:41 Last Admin: 04/04/17 07:52 Dose: 10 mg Hydrocortisone Sodium Succinate (Solu-Cortef) 100 mg IVPUSH Q6H [facility] Last Admin: 04/05/17 10:00 Dose: 100 mg Sodium Chloride (Normal Saline) 1,000 mls @ 999 mls/hr IV ONETIME ONE Stop: 04/04/17 08:22 Last Admin: 04/04/17 07:30 Dose: 999 mls/hr Diltiazem HCl 125 mg/ Sodium (Chloride) 125 mls @ 10 mls/hr IV TITRATE KARINA; 10 MG/HR PRN Reason: Protocol Last Titration: 04/04/17 11:39 Dose: 0 mg/hr, 0 mls/hr Ampicillin Sodium/Sulbactam (Sodium 3 gm/ Sodium Chloride) 100 mls @ 200 mls/ hr IV ONETIME ONE Stop: 04/04/17 08:32 Last Admin: 04/04/17 09:00 Dose: 200 mls/hr Sodium Chloride (Normal Saline) 1,000 mls @ 250 mls/hr IV ASDIRECTED [facility] Last Admin: 04/04/17 08:50 Dose: 250 mls/hr Ampicillin Sodium/Sulbactam (Sodium 1.5 gm/ Sodium Chloride) 100 mls @ 200 mls/ hr IV Q6H [facility] Last Admin: 04/06/17 08:40 Dose: 200 mls/hr Levofloxacin/Dextrose 750 mg/ (Premix) 150 mls @ 100 mls/hr IV ONETIME ONE Stop: 04/04/17 11:58 Last Admin: 04/04/17 11:42 Dose: 100 mls/hr Levofloxacin/Dextrose 750 mg/ (Premix) 150 mls @ 100 mls/hr IV Q24H [facility] Last Admin: 04/06/17 11:43 Dose: Not Given Sodium Chloride (Normal Saline) 1,000 mls @ 999 mls/hr IV .BOLUS ONE Stop: 04/04/17 11:30 Last Admin: 04/04/17 11:41 Dose: 999 mls/hr Norepinephrine Bitartrate 4 mg (/ Dextrose/Water) 250 mls @ 7.5 mls/hr IV TITRATE KARINA; 2 MCG/MIN PRN Reason: Protocol Last Titration: 04/05/17 09:15 Dose: 0 mcg/min, 0 mls/hr Sodium Chloride (Normal Saline) 500 mls @ 999 mls/hr IV .BOLUS ONE Stop: 04/04/17 12:29 Last Admin: 04/04/17 12:07 Dose: 999 mls/hr Magnesium Sulfate 2 gm/ Premix 50 mls @ 25 mls/hr IV ONETIME ONE Stop: 04/05/17 09:59 Last Admin: 04/05/17 08:33 Dose: 25 mls/hr Piperacillin Sod/Tazobactam (Sod 4.5 gm/ Dextrose/Water) 100 mls @ 200 mls/hr IV ONETIME ONE Stop: 04/06/17 14:59 Last Admin: 04/06/17 15:07 Dose: 200 mls/hr Non-Formulary Medication (Acetaminophen) 500 mg PO Q4H PRN PRN Reason: Fever Isosource 1.5 [place]on (Liquid Tube Feeding) 0 each GTUBE ACDINNER [facility] Last Admin: 04/04/17 16:51 Dose: 325 each Isosource 1.5 Damon (Liquid Tube Feeding) 0 each GTUBE ACBREAKFAST [facility] Last Admin: 04/06/17 20:28 Dose: Not Given Isosource 1.5 Damon (Liquid Tube Feeding) 0 each GTUBE ACLUNCH [facility] Saccharomyces Boulardii (Florastor) 500 mg PO NOW STA Stop: 04/04/17 10:45 Last Admin: 04/04/17 11:42 Dose: 500 mg - Exam General: Alert, Oriented, Cooperative, No Acute Distress HEENT: Pupils Equal, Pupils Reactive, EOMI, Mucous Membr. Moist/[place] Neck: Supple Lungs: Normal Respiratory Effort, Decreased Breath Sounds, Crackles, Wheezing Cardiovascular: Irregular Rhythm, Tachycardia GI/Abdominal Exam: Normal Bowel Sounds, Non-Tender, No Organomegaly, No Distention, No Abnormal Bruit, No Mass (Male) Exam: Deferred Back Exam: Normal Inspection, Full Range of Motion Extremities: Normal Inspection, Normal Range of Motion, Non-Tender, No Pedal Edema, Normal Capillary Refill Skin: Warm, Dry, Intact Neurological: No New Focal Deficit Psy/Mental Status: Alert, Normal Affect, Normal Mood - Assessment Assessment:: Patient is a 71 yo cauc[place] male that was admitted for pneumonia with possible sepsis. Patient feels much improved since yesterday. His respiratory pain is decreased and says it is a 1/10 on the pain scale. He reports no other acute symptoms. On physical exam, respiratory auscultation reveals crackles and wheezing in the both lung bases and in the upper left lobe. Cardiac exam reveals tachycardia with an irregular pattern which would be associated with the patients history of atrial fib. Rest of focused physical exam was unremarkable. Micro-sputum culture revealed pseudomonas aeruginosa, staphylococcus aureus, streptococcus pneumoniae - Plan Plan:: Assessment/Plan: Acute: Bacteremia - 2/2 Strep Pneumonia - Pharmacy to make changes on antibiotic - Repeat blood culture in AM - Continue current treatment PNA, Improving - Bilateral infiltrate on CXR - Risk factor: Dysphagia/Chronic Cough/Aspiration and GERD - WBC is 21K--> 24K--> 21.17-->9.89 and CRP is 16.2--> 31.6-->19.0--> 13.0 - IV ATB for pharmacy to make adjustment - Sputum Cx: Positive for Pseudomonas Aeruginosa, Staph Aureus and Strep Pneumoniae - Sensitivity only for Pseudomonas - Continue Supplemental O2, Bronchodilators and Routine RT care - Follow up CXR report reads: improved density within the left lung base. Increased density within the left upper chest as an interval change stable cardiomegaly. Stable pulmonary congestion. - IS as directed Atrial Fibrillation with RVR, HR now controlled - Induced by Sepsis - INR is therapeutic at 2.0; continue warfarin - Continue home rate control meds with PRN Lopressor 5 mg IVP Q4 - Daily INR Leukocytosis, Continues to improve - WBC of 21K --> 24K--> 21-->9.89 - 2/2 PNA - Treat underlying cause - Continue to Monitor Resolved: Acute Kidney Injury, Resolved - Likely 2/2 intravascular Volume Depletion from poor fluid intake - Baseline eGFR is > 60; he is 51 on admission; eGFR now at baseline - Avoid nephrotoxic agent if possible - Monitor urine output and vitals Lactic Acidosis - LA is 3.0---> 1.2 - 2/2 Septic shock - Follow up level at 1300 - Continue with hydration and pressure support drip Septic Shock 2/2 GP Organism: Strep Pneumoniae - 2/2 PNA - Documented profound hypotension with the following BPs: 77/61, 82/61, 80/ 60 and 84/61 mmHg; now stable - Minimally improved with fluid challenge - He was on cardizem drip for his A-fib RVR - Received 1L NS to improve volume status - Now off cardizem and levophed drip - Discontinue solucortef 100 mg IV Q6 - Continue IV Unasyn and IV Levaquin daily - Monitor for hemodynamic instability Chronic: Impaired Vision Hx/o PAF on Warfarin GERD, H2B BPH, Flomax Hx/o Throat Cancer S/p Surgical Resection, Stable Hx/o Aspiration PNA Dysphagia S/p PEG Tube Placement Plan: He is clinically stable Continue telemetry Routine AM Labs Continue PT/OT/RT Aspiration Precaution DVT/GI PPx: Warfarin and H2B Diet as per PEG Tube home regimen SW/CM for d/c planning Encourage to ambulate as tolerated Additional orders as above Code status: 1 Prognosis stable. LOS anticipate > 96 hrs pending results of repeat blood culture <Brianne Ha T - Last Filed: 04/08/17 00:38> - General Info Functional Status: Reports: Pain Controlled, Tolerating Diet, Ambulating, Urinating - Review of Systems General: Denies: Fever, Chills HEENT: Reports: No Symptoms Pulmonary: Reports: Shortness of Breath, Cough Cardiovascular: Denies: Chest Pain Gastrointestinal: Reports: Difficulty Swallowing. Denies: Abdominal Pain, Nausea, Vomiting Genitourinary: Reports: No Symptoms Musculoskeletal: Reports: No Symptoms Skin: Denies: Cyanosis, Diaphoresis, Bruising, Rash Neurological: Denies: Confusion, Difficulty Walking, Weakness, Gait Disturbance Psychiatric: Denies: Depression, Anxiety, Hallucinations Systems Review Comment:: No significant overnight or acute issues. He continues to feel better. He has no new complaints. His labs continues to improve. He has no new complaints. - Patient Data Vitals - Most Recent: Last Vital Signs Temp 36.5 C 04/07/17 19:55 Pulse 85 04/07/17 22:18 Resp 18 04/07/17 19:55 BP 134/78 04/07/17 22:18 Pulse Ox 94 L 04/07/17 19:55 I&O - Last 24 Hours: Intake & Output 04/07/17 04/07/17 04/08/17 14:59 22:59 06:59 Intake Total 100 Output Total 1900 Balance -1800 Lab Results Last 24 Hours: Laboratory Results - last 24 hr 04/07/17 04/07/17 04/07/17 Range/Units 06:15 06:15 06:15 WBC 9.89 H (4.23-9.07) K/mm3 RBC 3.43 L (4.63-6.08) M/mm3 Hgb 11.4 L (13.7-17.5) gm/L Hct 34.5 L (40.1-51.0) % MCV 100.6 H (79.0-92.2) fl MCH 33.2 H (25.7-32.2) pg MCHC 33.0 (32.2-35.5) g/dl RDW Std Deviation 47.9 H (35.1-43.9) fL Plt Count 196 (163-337) K/mm3 MPV 11.3 (9.4-12.3) fl Neut % (Auto) 76.5 H (34.0-67.9) % Lymph % (Auto) 11.5 L (21.8-53.1) % [place] % (Auto) 9.4 (5.3-12.2) % Eos % (Auto) 2.2 (0.8-7.0) Baso % (Auto) 0.1 (0.1-1.2) % Neut # (Auto) 7.56 H (1.78-5.38) K/mm3 Lymph # (Auto) 1.14 L (1.32-3.57) K/mm3 [place] # (Auto) 0.93 H (0.30-0.82) K/mm3 Eos # (Auto) 0.22 (0.04-0.54) K/mm3 Baso # (Auto) 0.01 (0.01-0.08) K/mm3 PT 22.8 H (8.0-13.0) SECONDS INR 2.00 Sodium 136 (136-145) mEq/L Potassium 3.5 (3.5-5.1) mEq/L Chloride 102 (98-107) mEq/L Carbon Dioxide 29 (21-32) mEq/L Anion Gap 8.5 (5-15) BUN 12 (7-18) mg/dL Creatinine 0.5 L (0.7-1.3) mg/dL Est Cr Clr Drug Dosing 141.94 mL/min Estimated GFR (MDRD) > 60 (>60) mL/min BUN/Creatinine Ratio 24.0 H (14-18) Glucose 86 (80-115) mg/dL Calcium 8.0 L (8.5-10.1) mg/dL C-Reactive Protein 13.0 H* (<1.0) mg/dL Wei Results Last 24 Hours: Microbiology 04/06/17 23:46 Aerobic Blood Culture - Preliminary Blood - Venous NO GROWTH AFTER 1 DAY Anaerobic Blood Culture - Preliminary NO GROWTH AFTER 1 DAY 04/06/17 23:53 Aerobic Blood Culture - Preliminary Blood - Venous - Lab Draw NO GROWTH AFTER 1 DAY Anaerobic Blood Culture - Preliminary NO GROWTH AFTER 1 DAY 04/04/17 11:09 Gram Stain - Final Sputum - Expectorated Sputum Culture - Final Pseudomonas Aeruginosa Staphylococcus Aureus Streptococcus Pneumoniae Med Orders - Current: Current Medications Acetaminophen (Tylenol) 650 mg PO Q4H PRN PRN Reason: Pain (Mild 1-3)/fever Last Admin: 04/07/17 19:49 Dose: 650 mg Hydrocodone Bitart/Acetaminophen ([place] 325-5 Mg) 1 tab PO Q4H PRN PRN Reason: Pain (moderate 4-6) Albuterol/Ipratropium (Duoneb 3.0-0.5 Mg/3 Ml) 3 ml NEB Q4H PRN PRN Reason: Shortness Of Breath/wheezing Last Admin: 04/05/17 02:39 Dose: 3 ml Bisacodyl (Dulcolax) 5 mg PO DAILY PRN PRN Reason: Constipation Diltiazem HCl (Cardizem) 60 mg GTUBE TID [facility] Last Admin: 04/07/17 22:16 Dose: 60 mg Docusate Sodium (Colace) 100 mg PO BID PRN PRN Reason: Constipation Famotidine (Pepcid) 20 mg PO BID [facility] Last Admin: 04/07/17 22:17 Dose: 20 mg Hydralazine HCl (Apresoline) 20 mg IVPUSH Q4H PRN PRN Reason: Hypertension Hydromorphone HCl (Dilaudid) 0.25 mg IVPUSH Q2H PRN PRN Reason: Pain (severe 7-10) Promethazine HCl 12.5 mg/ (Sodium Chloride) 50.5 mls @ 100 mls/hr IV Q6H PRN PRN Reason: Nausea/Vomiting Sodium Chloride (Normal Saline) 1,000 mls @ 75 mls/hr IV ASDIRECTED [facility] Last Admin: 04/07/17 23:56 Dose: 75 mls/hr Piperacillin Sod/Tazobactam (Sod 4.5 gm/ Dextrose/Water) 100 mls @ 25 mls/hr IV Q8H [facility] Last Admin: 04/07/17 23:54 Dose: 25 mls/hr Lorazepam (Ativan) 1 mg IV Q6H PRN PRN Reason: Anxiety Magnesium Sulfate (Pharmacy To Dose - Magnesium Replacement) 0 dose .XX ASDIRECTED PRN PRN Reason: RX TO WATCH MAG LEVELS Metoprolol Tartrate (Lopressor) 5 mg IVPUSH Q4H PRN PRN Reason: Tachycardia Last Admin: 04/05/17 06:35 Dose: 5 mg Metoprolol Tartrate (Lopressor) 25 mg GTUBE TID [facility] Last Admin: 04/07/17 22:18 Dose: 25 mg Ondansetron HCl (Zofran) 4 mg IV Q6H PRN PRN Reason: Nausea/Vomiting Polyethylene Glycol (Miralax) 17 gm PO DAILY PRN PRN Reason: Constipation Potassium Chloride (Pharmacy To Dose - Potassium Replacement) 0 dose .XX ASDIRECTED PRN PRN Reason: RX TO WATCH K LEVELS Saccharomyces Boulardii (Florastor) 250 mg PO BID [facility] Last Admin: 04/07/17 22:18 Dose: 250 mg Senna/Docusate Sodium (Senna Plus) 1 tab PO BID PRN PRN Reason: Constipation Temazepam (Restoril) 7.5 mg PO BEDTIME PRN PRN Reason: Sleep Warfarin Sodium (Coumadin) 2.5 mg PO MoWeFr@1800 [facility] Last Admin: 04/07/17 18:06 Dose: 2.5 mg Warfarin Sodium (Coumadin) 5 mg PO SuTuThSa@1800 [facility] Last Admin: 04/06/17 18:18 Dose: 5 mg Discontinued Medications Acetaminophen (Tylenol Solution) 650 mg PO ONETIME ONE Stop: 04/04/17 09:27 Last Admin: 04/04/17 10:30 Dose: 650 mg Bumetanide (Bumex) 1 mg IVPUSH ONETIME ONE Stop: 04/04/17 14:36 Last Admin: 04/04/17 15:22 Dose: 1 mg Diltiazem HCl (Diltiazem) 10 mg IVPUSH ONETIME STA Stop: 04/04/17 07:41 Last Admin: 04/04/17 07:52 Dose: 10 mg Hydrocortisone Sodium Succinate (Solu-Cortef) 100 mg IVPUSH Q6H [facility] Last Admin: 04/05/17 10:00 Dose: 100 mg Sodium Chloride (Normal Saline) 1,000 mls @ 999 mls/hr IV ONETIME ONE Stop: 04/04/17 08:22 Last Admin: 04/04/17 07:30 Dose: 999 mls/hr Diltiazem HCl 125 mg/ Sodium (Chloride) 125 mls @ 10 mls/hr IV TITRATE KARINA; 10 MG/HR PRN Reason: Protocol Last Titration: 04/04/17 11:39 Dose: 0 mg/hr, 0 mls/hr Ampicillin Sodium/Sulbactam (Sodium 3 gm/ Sodium Chloride) 100 mls @ 200 mls/ hr IV ONETIME ONE Stop: 04/04/17 08:32 Last Admin: 04/04/17 09:00 Dose: 200 mls/hr Sodium Chloride (Normal Saline) 1,000 mls @ 250 mls/hr IV ASDIRECTED [facility] Last Admin: 04/04/17 08:50 Dose: 250 mls/hr Ampicillin Sodium/Sulbactam (Sodium 1.5 gm/ Sodium Chloride) 100 mls @ 200 mls/ hr IV Q6H [facility] Last Admin: 04/06/17 08:40 Dose: 200 mls/hr Levofloxacin/Dextrose 750 mg/ (Premix) 150 mls @ 100 mls/hr IV ONETIME ONE Stop: 04/04/17 11:58 Last Admin: 04/04/17 11:42 Dose: 100 mls/hr Levofloxacin/Dextrose 750 mg/ (Premix) 150 mls @ 100 mls/hr IV Q24H [facility] Last Admin: 04/06/17 11:43 Dose: Not Given Sodium Chloride (Normal Saline) 1,000 mls @ 999 mls/hr IV .BOLUS ONE Stop: 04/04/17 11:30 Last Admin: 04/04/17 11:41 Dose: 999 mls/hr Norepinephrine Bitartrate 4 mg (/ Dextrose/Water) 250 mls @ 7.5 mls/hr IV TITRATE KARINA; 2 MCG/MIN PRN Reason: Protocol Last Titration: 04/05/17 09:15 Dose: 0 mcg/min, 0 mls/hr Sodium Chloride (Normal Saline) 500 mls @ 999 mls/hr IV .BOLUS ONE Stop: 04/04/17 12:29 Last Admin: 04/04/17 12:07 Dose: 999 mls/hr Magnesium Sulfate 2 gm/ Premix 50 mls @ 25 mls/hr IV ONETIME ONE Stop: 04/05/17 09:59 Last Admin: 04/05/17 08:33 Dose: 25 mls/hr Piperacillin Sod/Tazobactam (Sod 4.5 gm/ Dextrose/Water) 100 mls @ 200 mls/hr IV ONETIME ONE Stop: 04/06/17 14:59 Last Admin: 04/06/17 15:07 Dose: 200 mls/hr Non-Formulary Medication (Acetaminophen) 500 mg PO Q4H PRN PRN Reason: Fever Isosource 1.5 Damon (Liquid Tube Feeding) 0 each GTUBE ACDINNER [facility] Last Admin: 04/04/17 16:51 Dose: 325 each Isosource 1.5 Damon (Liquid Tube Feeding) 0 each GTUBE ACBREAKFAST [facility] Last Admin: 04/06/17 20:28 Dose: Not Given Isosource 1.5 Damon (Liquid Tube Feeding) 0 each GTUBE ACLUNCH [facility] Saccharomyces Boulardii (Florastor) 500 mg PO NOW STA Stop: 04/04/17 10:45 Last Admin: 04/04/17 11:42 Dose: 500 mg - Exam Quality Assessment: Supplemental Oxygen (1L NC) General: Alert, Oriented, Cooperative, No Acute Distress HEENT: Pupils Equal, Pupils Reactive, EOMI, Mucous Membr. Moist/[place] Neck: Trachea Midline, No JVD Lungs: Normal Respiratory Effort, Decreased Breath Sounds, Crackles, Wheezing Cardiovascular: Irregular Rhythm GI/Abdominal Exam: Normal Bowel Sounds, Non-Tender, No Organomegaly, No Distention, No Abnormal Bruit, No Mass (Male) Exam: Deferred Back Exam: Normal Inspection, Decreased Range of Motion Extremities: Normal Inspection, Normal Range of Motion, Non-Tender, No Pedal Edema, Normal Capillary Refill Peripheral Pulses: 2+: Dorsalis Pedis (L), Dorsalis Pedis (R) Skin: Warm, Dry, Intact Neurological: No New Focal Deficit Psy/Mental Status: Alert, Normal Affect, Normal Mood - Problem List Review Problem List Initiated/Reviewed/Updated: Yes - My Orders Last 24 Hours: My Active Orders 04/06/17 23:46 CULTURE BLOOD [BC] Stat 04/06/17 23:53 CULTURE BLOOD [BC] Stat 04/07/17 05:11 Blood Culture x2 Reflex Set [OM.PC] Stat - Plan Plan:: Assessment/Plan: Acute: Bacteremia - 2/2 Strep Pneumonia - On Zosyn IV Q8H - Repeat blood culture completed - Continue current treatment PNA, Continues to Imrpove - Bilateral infiltrate on CXR - Risk factor: Dysphagia/Chronic Cough/Aspiration and GERD - WBC is 21K--> 24K--> 21.17--> 9.89 and CRP is 16.2--> 31.6-->19.0--> 13.0 - IV Zosyn as per pharmacy - Sputum Cx: Positive for Pseudomonas Aeruginosa, Staph Aureus and Strep Pneumoniae - Sensitivity only for Pseudomonas - Continue Supplemental O2, Bronchodilators and Routine RT care - Follow up CXR report reads: improved density within the left lung base. Increased density within the left upper chest as an interval change stable cardiomegaly. Stable pulmonary congestion. - IS as directed Leukocytosis, Continues to improve - WBC of 21K --> 24K--> 21--> 9.89 - 2/2 PNA - Treat underlying cause - Continue to Monitor Resolved: Acute Kidney Injury, Resolved - Likely 2/2 intravascular Volume Depletion from poor fluid intake - Baseline eGFR is > 60; he is 51 on admission; eGFR now at baseline - Avoid nephrotoxic agent if possible - Monitor urine output and vitals Lactic Acidosis - LA is 3.0---> 1.2 - 2/2 Septic shock - Follow up level at 1300 - Continue with hydration and pressure support drip Septic Shock 2/2 GP Organism: Strep Pneumoniae - 2/2 PNA - Documented profound hypotension with the following BPs: 77/61, 82/61, 80/ 60 and 84/61 mmHg; now stable - Minimally improved with fluid challenge - He was on cardizem drip for his A-fib RVR - Received 1L NS to improve volume status - Now off cardizem and levophed drip - Discontinue solucortef 100 mg IV Q6 - Continue IV Unasyn and IV Levaquin daily - Monitor for hemodynamic instability Atrial Fibrillation with RVR, HR now controlled - Induced by Sepsis - INR is therapeutic at 2.0; continue warfarin - Continue home rate control meds with PRN Lopressor 5 mg IVP Q4 - Daily INR Chronic: Impaired Vision Hx/o PAF on Warfarin GERD, H2B BPH, Flomax Hx/o Throat Cancer S/p Surgical Resection, Stable Hx/o Aspiration PNA Dysphagia S/p PEG Tube Placement Plan: He remains clinically stable and now ambulating Routine AM Labs Continue PT/OT/RT Aspiration Precaution DVT/GI PPx: Warfarin and H2B Diet as per PEG Tube home regimen SW/CM for d/c planning Encourage to ambulate as tolerated Additional orders as above Code status: 1 Prognosis good. LOS anticipate > 96 hrs pending results of repeat blood culture
[2017-04-07] MEDS: Sodium Chloride 0.9% 1,000 ML IV SCH ×2 (10:17→23:56)
[2017-04-07] MEDS: Warfarin 2.5 MG Tab PO SCH (18:06)
[2017-04-07] MEDS: Acetaminophen 325 MG Tab PO PRN (19:49)
[2017-04-08] MEDS: Piperacillin/Tazobactam 4.5 GM in Dextrose 5% in Water 100 ML IV SCH ×6 (06:44→22:50)
--- NOTE | 2017-04-08 07:41 | PCM.PN ---
- General Info Date of Service: 04/08/17 Admission Dx/Problem (Free Text): Sepsis and Atrial Fibrillation with RVR Subjective Update: Follow Up Functional Status: Reports: Pain Controlled, Tolerating Diet, Ambulating, Urinating. Denies: New Symptoms - Review of Systems General: Denies: Fever, Chills HEENT: Reports: No Symptoms Pulmonary: Reports: Shortness of Breath, Cough, Other (chest congestion) Cardiovascular: Denies: Chest Pain Gastrointestinal: Denies: Abdominal Pain, Nausea, Vomiting Genitourinary: Reports: No Symptoms Musculoskeletal: Reports: No Symptoms Skin: Denies: Cyanosis, Pallor, Diaphoresis, Rash Neurological: Denies: Confusion, Difficulty Walking, Weakness, Gait Disturbance Psychiatric: Denies: Depression, Anxiety, Agitation, Hallucinations Systems Review Comment:: No overnight or acute issues. He slept pretty good. He reports chest congestion. His WBC and CRP did not improve much from yesterday. He has no new complaints. - Patient Data Vitals - Most Recent: Last Vital Signs Temp 36.4 C 04/08/17 04:59 Pulse 89 04/08/17 04:59 Resp 16 04/08/17 04:59 BP 135/89 04/08/17 04:59 Pulse Ox 93 L 04/08/17 04:59 Weight - Most Recent: 76.113 kg I&O - Last 24 Hours: Intake & Output 04/07/17 04/08/17 04/08/17 22:59 06:59 14:59 Intake Total 100 2274 Output Total 1900 2300 Balance -1800 -26 Lab Results Last 24 Hours: Laboratory Results - last 24 hr 04/08/17 04/08/17 04/08/17 Range/Units 06:16 06:16 06:16 WBC 9.56 H (4.23-9.07) K/mm3 RBC 3.58 L (4.63-6.08) M/mm3 Hgb 12.0 L (13.7-17.5) gm/L Hct 35.5 L (40.1-51.0) % MCV 99.2 H (79.0-92.2) fl MCH 33.5 H (25.7-32.2) pg MCHC 33.8 (32.2-35.5) g/dl RDW Std Deviation 46.3 H (35.1-43.9) fL Plt Count 219 (163-337) K/mm3 MPV 11.0 (9.4-12.3) fl Neut % (Auto) 65.2 (34.0-67.9) % Lymph % (Auto) 15.5 L (21.8-53.1) % Green % (Auto) 14.1 H (5.3-12.2) % Eos % (Auto) 4.7 (0.8-7.0) Baso % (Auto) 0.1 (0.1-1.2) % Neut # (Auto) 6.23 H (1.78-5.38) K/mm3 Lymph # (Auto) 1.48 (1.32-3.57) K/mm3 Green # (Auto) 1.35 H (0.30-0.82) K/mm3 Eos # (Auto) 0.45 (0.04-0.54) K/mm3 Baso # (Auto) 0.01 (0.01-0.08) K/mm3 PT 26.4 H (8.0-13.0) SECONDS INR 2.30 Sodium 137 (136-145) mEq/L Potassium 3.5 (3.5-5.1) mEq/L Chloride 99 (98-107) mEq/L Carbon Dioxide 30 (21-32) mEq/L Anion Gap 11.5 (5-15) BUN 8 (7-18) mg/dL Creatinine 0.6 L (0.7-1.3) mg/dL Est Cr Clr Drug Dosing 118.29 mL/min Estimated GFR (MDRD) > 60 (>60) mL/min BUN/Creatinine Ratio 13.3 L (14-18) Glucose 91 (80-115) mg/dL Calcium 8.4 L (8.5-10.1) mg/dL C-Reactive Protein 13.8 H* (<1.0) mg/dL Wei Results Last 24 Hours: Microbiology 04/06/17 23:46 Aerobic Blood Culture - Preliminary Blood - Venous NO GROWTH AFTER 1 DAY Anaerobic Blood Culture - Preliminary NO GROWTH AFTER 1 DAY 04/06/17 23:53 Aerobic Blood Culture - Preliminary Blood - Venous - Lab Draw NO GROWTH AFTER 1 DAY Anaerobic Blood Culture - Preliminary NO GROWTH AFTER 1 DAY 04/04/17 11:09 Gram Stain - Final Sputum - Expectorated Sputum Culture - Final Pseudomonas Aeruginosa Staphylococcus Aureus Streptococcus Pneumoniae Med Orders - Current: Current Medications Acetaminophen (Tylenol) 650 mg PO Q4H PRN PRN Reason: Pain (Mild 1-3)/fever Last Admin: 04/07/17 19:49 Dose: 650 mg Hydrocodone Bitart/Acetaminophen ([place] 325-5 Mg) 1 tab PO Q4H PRN PRN Reason: Pain (moderate 4-6) Albuterol/Ipratropium (Duoneb 3.0-0.5 Mg/3 Ml) 3 ml NEB Q4H PRN PRN Reason: Shortness Of Breath/wheezing Last Admin: 04/05/17 02:39 Dose: 3 ml Bisacodyl (Dulcolax) 5 mg PO DAILY PRN PRN Reason: Constipation Diltiazem HCl (Cardizem) 60 mg GTUBE TID [facility] Last Admin: 04/07/17 22:16 Dose: 60 mg Docusate Sodium (Colace) 100 mg PO BID PRN PRN Reason: Constipation Famotidine (Pepcid) 20 mg PO BID [facility] Last Admin: 04/07/17 22:17 Dose: 20 mg Hydralazine HCl (Apresoline) 20 mg IVPUSH Q4H PRN PRN Reason: Hypertension Hydromorphone HCl (Dilaudid) 0.25 mg IVPUSH Q2H PRN PRN Reason: Pain (severe 7-10) Promethazine HCl 12.5 mg/ (Sodium Chloride) 50.5 mls @ 100 mls/hr IV Q6H PRN PRN Reason: Nausea/Vomiting Sodium Chloride (Normal Saline) 1,000 mls @ 75 mls/hr IV ASDIRECTED [facility] Last Admin: 04/07/17 23:56 Dose: 75 mls/hr Piperacillin Sod/Tazobactam (Sod 4.5 gm/ Dextrose/Water) 100 mls @ 25 mls/hr IV Q8H [facility] Last Admin: 04/08/17 06:44 Dose: 25 mls/hr Levofloxacin/Dextrose 750 mg/ (Premix) 150 mls @ 100 mls/hr IV Q24H [facility] Lorazepam (Ativan) 1 mg IV Q6H PRN PRN Reason: Anxiety Magnesium Sulfate (Pharmacy To Dose - Magnesium Replacement) 0 dose .XX ASDIRECTED PRN PRN Reason: RX TO WATCH MAG LEVELS Metoprolol Tartrate (Lopressor) 5 mg IVPUSH Q4H PRN PRN Reason: Tachycardia Last Admin: 04/05/17 06:35 Dose: 5 mg Metoprolol Tartrate (Lopressor) 25 mg GTUBE TID [facility] Last Admin: 04/07/17 22:18 Dose: 25 mg Ondansetron HCl (Zofran) 4 mg IV Q6H PRN PRN Reason: Nausea/Vomiting Polyethylene Glycol (Miralax) 17 gm PO DAILY PRN PRN Reason: Constipation Potassium Chloride (Pharmacy To Dose - Potassium Replacement) 0 dose .XX ASDIRECTED PRN PRN Reason: RX TO WATCH K LEVELS Saccharomyces Boulardii (Florastor) 250 mg PO BID [facility] Last Admin: 04/07/17 22:18 Dose: 250 mg Senna/Docusate Sodium (Senna Plus) 1 tab PO BID PRN PRN Reason: Constipation Temazepam (Restoril) 7.5 mg PO BEDTIME PRN PRN Reason: Sleep Warfarin Sodium (Coumadin) 2.5 mg PO MoWeFr@1800 [facility] Last Admin: 04/07/17 18:06 Dose: 2.5 mg Warfarin Sodium (Coumadin) 5 mg PO SuTuThSa@1800 [facility] Last Admin: 04/06/17 18:18 Dose: 5 mg Discontinued Medications Acetaminophen (Tylenol Solution) 650 mg PO ONETIME ONE Stop: 04/04/17 09:27 Last Admin: 04/04/17 10:30 Dose: 650 mg Bumetanide (Bumex) 1 mg IVPUSH ONETIME ONE Stop: 04/04/17 14:36 Last Admin: 04/04/17 15:22 Dose: 1 mg Diltiazem HCl (Diltiazem) 10 mg IVPUSH ONETIME STA Stop: 04/04/17 07:41 Last Admin: 04/04/17 07:52 Dose: 10 mg Hydrocortisone Sodium Succinate (Solu-Cortef) 100 mg IVPUSH Q6H [facility] Last Admin: 04/05/17 10:00 Dose: 100 mg Sodium Chloride (Normal Saline) 1,000 mls @ 999 mls/hr IV ONETIME ONE Stop: 04/04/17 08:22 Last Admin: 04/04/17 07:30 Dose: 999 mls/hr Diltiazem HCl 125 mg/ Sodium (Chloride) 125 mls @ 10 mls/hr IV TITRATE KARINA; 10 MG/HR PRN Reason: Protocol Last Titration: 04/04/17 11:39 Dose: 0 mg/hr, 0 mls/hr Ampicillin Sodium/Sulbactam (Sodium 3 gm/ Sodium Chloride) 100 mls @ 200 mls/ hr IV ONETIME ONE Stop: 04/04/17 08:32 Last Admin: 04/04/17 09:00 Dose: 200 mls/hr Sodium Chloride (Normal Saline) 1,000 mls @ 250 mls/hr IV ASDIRECTED KARINA Last Admin: 04/04/17 08:50 Dose: 250 mls/hr Ampicillin Sodium/Sulbactam (Sodium 1.5 gm/ Sodium Chloride) 100 mls @ 200 mls/ hr IV Q6H KARINA Last Admin: 04/06/17 08:40 Dose: 200 mls/hr Levofloxacin/Dextrose 750 mg/ (Premix) 150 mls @ 100 mls/hr IV ONETIME ONE Stop: 04/04/17 11:58 Last Admin: 04/04/17 11:42 Dose: 100 mls/hr Levofloxacin/Dextrose 750 mg/ (Premix) 150 mls @ 100 mls/hr IV Q24H [facility] Last Admin: 04/06/17 11:43 Dose: Not Given Sodium Chloride (Normal Saline) 1,000 mls @ 999 mls/hr IV .BOLUS ONE Stop: 04/04/17 11:30 Last Admin: 04/04/17 11:41 Dose: 999 mls/hr Norepinephrine Bitartrate 4 mg (/ Dextrose/Water) 250 mls @ 7.5 mls/hr IV TITRATE KARINA; 2 MCG/MIN PRN Reason: Protocol Last Titration: 04/05/17 09:15 Dose: 0 mcg/min, 0 mls/hr Sodium Chloride (Normal Saline) 500 mls @ 999 mls/hr IV .BOLUS ONE Stop: 04/04/17 12:29 Last Admin: 04/04/17 12:07 Dose: 999 mls/hr Magnesium Sulfate 2 gm/ Premix 50 mls @ 25 mls/hr IV ONETIME ONE Stop: 04/05/17 09:59 Last Admin: 04/05/17 08:33 Dose: 25 mls/hr Piperacillin Sod/Tazobactam (Sod 4.5 gm/ Dextrose/Water) 100 mls @ 200 mls/hr IV ONETIME ONE Stop: 04/06/17 14:59 Last Admin: 04/06/17 15:07 Dose: 200 mls/hr Non-Formulary Medication (Acetaminophen) 500 mg PO Q4H PRN PRN Reason: Fever Isosource 1.5 Damon (Liquid Tube Feeding) 0 each GTUBE ACDINNER KARINA Last Admin: 04/04/17 16:51 Dose: 325 each Isosource 1.5 Damon (Liquid Tube Feeding) 0 each GTUBE ACBREAKFAST KARINA Last Admin: 04/06/17 20:28 Dose: Not Given Isosource 1.5 Damon (Liquid Tube Feeding) 0 each GTUBE ACLUNCH KARINA Saccharomyces Boulardii (Florastor) 500 mg PO NOW STA Stop: 04/04/17 10:45 Last Admin: 04/04/17 11:42 Dose: 500 mg - Exam Quality Assessment: Supplemental Oxygen General: Alert, Oriented, Cooperative, No Acute Distress HEENT: Pupils Equal, Pupils Reactive, EOMI, Mucous Membr. Moist/Abanda Neck: Supple, Trachea Midline, No JVD, No Thyromegaly Lungs: Decreased Breath Sounds, Rhonchi Cardiovascular: Irregular Rhythm, Other (Good aeration) GI/Abdominal Exam: Normal Bowel Sounds, Soft, Non-Tender, No Organomegaly, No Distention, No Abnormal Bruit, No Mass (Male) Exam: Deferred Back Exam: Normal Inspection, Decreased Range of Motion Extremities: Normal Inspection, Normal Range of Motion, Non-Tender, No Pedal Edema, Normal Capillary Refill Peripheral Pulses: 2+: Dorsalis Pedis (L), Dorsalis Pedis (R) Skin: Warm, Dry, Intact Neurological: No New Focal Deficit Psy/Mental Status: Alert, Normal Affect, Normal Mood - Problem List Review Problem List Initiated/Reviewed/Updated: Yes - My Orders Last 24 Hours: My Active Orders 04/08/17 07:45 Levofloxacin/Dextrose 5%-Water [Levaquin in D5W 750 MG/150 ML] 750 mg Premix Bag 1 bag IV Q24H - Plan Plan:: Assessment/Plan: Acute: Bacteremia - 2/2 Strep Pneumonia - On Zosyn IV Q8H; restarted IV Levaquin 750 mg IV daily - Repeat blood culture; no growth for 1 day - Continue current treatment PNA, Continues to Improve - Bilateral infiltrate on CXR - Risk factor: Dysphagia/Chronic Cough/Aspiration and GERD - WBC is 21K--> 24K--> 21.17--> 9.89--> 9.56 and CRP is 16.2--> 31.6-->19.0-- > 13.0 --> 13.8 - IV Zosyn and Levaquin - Sputum Cx: Positive for Pseudomonas Aeruginosa, Staph Aureus and Strep Pneumoniae - Continue Supplemental O2, Bronchodilators and Routine RT care - Follow up CXR report reads: improved density within the left lung base. Increased density within the left upper chest as an interval change stable cardiomegaly. Stable pulmonary congestion - IS as directed - Added decongestant/expectorant - Chest Physiotherapy BID per patient request Leukocytosis, Continues to improve - WBC of 21K --> 24K--> 21--> 9.89 --> 9.56 - 2/2 PNA - Treat underlying cause - Continue to Monitor Resolved: Acute Kidney Injury, Resolved - Likely 2/2 intravascular Volume Depletion from poor fluid intake - Baseline eGFR is > 60; he is 50 on admission; eGFR now at baseline - Avoid nephrotoxic agent if possible - Monitor urine output and vitals Lactic Acidosis - LA is 3.0---> 1.2 - 2/2 Septic shock - Follow up level at 1300 - Continue with hydration and pressure support drip Septic Shock 2/2 GP Organism: Strep Pneumoniae - 2/2 PNA - Documented profound hypotension with the following BPs: 77/61, 82/61, 80/ 60 and 84/61 mmHg; now stable - Minimally improved with fluid challenge - He was on cardizem drip for his A-fib RVR - Received 1L NS to improve volume status - Now off cardizem and levophed drip - Discontinue solucortef 100 mg IV Q6 - Continue IV Unasyn and IV Levaquin daily - Monitor for hemodynamic instability Atrial Fibrillation with RVR, HR now controlled - Induced by Sepsis - INR is therapeutic at 2.0; continue warfarin - Continue home rate control meds with PRN Lopressor 5 mg IVP Q4 - Daily INR Chronic: Impaired Vision Hx/o PAF on Warfarin GERD, H2B BPH, Flomax Hx/o Throat Cancer S/p Surgical Resection, Stable Hx/o Aspiration PNA Dysphagia S/p PEG Tube Placement Plan: He remains clinically stable and now ambulating Routine AM Labs Continue PT/OT/RT Aspiration Precaution DVT/GI PPx: Warfarin and H2B Diet as per PEG Tube home regimen SW/ for d/c planning Encourage to ambulate as tolerated Additional orders as above Code status: 1 Possible d/c in AM LOS > 96 hrs due to slow response to treatment pending results of repeat blood culture
[2017-04-08] MEDS ORDERED: Levofloxacin/Dextrose 5%-Water 750 MG in Premix Bag 1 BAG IV ONE (08:30)
[2017-04-08] MEDS: Diltiazem IR 60 MG Tab GTUBE SCH ×3 (08:45→21:17)
[2017-04-08] MEDS: Saccharomyces Boulardii (Probiotic) 250 MG Cap PO SCH ×2 (08:46→21:18)
[2017-04-08] MEDS: Metoprolol Tartrate 25 MG Tab GTUBE SCH ×3 (08:47→21:16)
[2017-04-08] MEDS: Famotidine 20 MG Tab PO SCH ×2 (08:48→21:17)
[2017-04-08] MEDS: guaiFENesin/Dextromethorphan 100-10 MG/5 ML Soln 5 ML Cup PO SCH ×2 (13:22→18:25)
[2017-04-08] MEDS: Warfarin 5 MG Tab PO SCH (18:25)
[2017-04-09] MEDS: guaiFENesin/Dextromethorphan 100-10 MG/5 ML Soln 5 ML Cup PO SCH ×2 (02:52→06:00)
[2017-04-09] MEDS: Acetaminophen 325 MG Tab PO PRN (06:13)
[2017-04-09] MEDS: Piperacillin/Tazobactam 4.5 GM in Dextrose 5% in Water 100 ML IV SCH ×2 (06:34)
--- NOTE | 2017-04-09 08:40 | PCM.DCSUM1 ---
Discharge Summary - Hospital Course Brief History: This is a 71-year-old white male with past medical history of impaired vision, history of paroxysmal atrial fibrillation on warfarin, GERD, history of throat cancer status post surgical excision, and BPH who presents to the emergency department with complaints of subjective fever and chills that started 2 nights ago. He was admitted for septic shock secondary to pneumonia, acute kidney injury and atrial fibrillation with RVR. - Discharge Data Discharge Date: 04/09/17 Discharge Disposition: Home, Self-Care 01 Condition: Good - Discharge Diagnosis/Problem(s) (1) Lactic acidosis SNOMED Code(s): 37850008 ICD Code: E87.2 - ACIDOSIS Status: Resolved (2) Leukocytosis SNOMED Code(s): 160521950 ICD Code: D72.829 - ELEVATED WHITE BLOOD CELL COUNT, UNSPECIFIED Status: Acute Qualifiers: Leukocytosis type: unspecified Qualified Code(s): D72.829 - Elevated white blood cell count, unspecified (3) Acute kidney injury SNOMED Code(s): 85236004 ICD Code: N17.9 - ACUTE KIDNEY FAILURE, UNSPECIFIED Status: Resolved (4) Aspiration pneumonia SNOMED Code(s): 760689947 ICD Code: J69.0 - PNEUMONITIS DUE TO INHALATION OF FOOD AND VOMIT Status: Chronic Qualifiers: Aspiration pneumonia type: due to gastric secretions Laterality: left Lung location: lower lobe of lung Qualified Code(s): J69.0 - Pneumonitis due to inhalation of food and vomit (5) Septic shock SNOMED Code(s): 20545420 ICD Code: A41.9 - SEPSIS, UNSPECIFIED ORGANISM; R65.21 - SEVERE SEPSIS WITH SEPTIC SHOCK Status: Resolved (6) Atrial fibrillation with tachycardic ventricular rate SNOMED Code(s): 21284725 ICD Code: I48.91 - UNSPECIFIED ATRIAL FIBRILLATION Status: Resolved - Patient Summary/Data Operative Procedure(s) Performed: None Complications: None Consults: None Labs Pending at D/C: None Recommended Follow-up Testing/Procedures: None Planned Operative Procedure(s) after DC: None Hospital Course: Patient was admitted for medical management of septic shock secondary to pneumonia, acute kidney injury and atrial fibrillation with RVR. He carried a past medical history of paroxysmal atrial fibrillation on warfarin, recurrent aspiration pneumonia due to dysphagia, GERD, PEG tube placement secondary to dysphagia, BPH, and history of throat cancer status post resection. Patient was very ill on presentation and therefore he was aggressively treated with volume resuscitation, intravenous steroids, broad-spectrum antibiotics, and pressure support. Slowly the patient improved on this regimen. His A. fib RVR improved as his hemodynamics got better. He received a 6 day course of intravenous antibiotics. His his sputum culture grew Pseudomonas, Staphylococcus aureus, and Streptococcus pneumonia- all susceptible to combined penicillin-based antibiotics and cephalosporin. His hospital course was complicated by bacteremia which prolonged his stay here in the hospital. The rest of his chronic medical illness remained stable for this admission. Patient was discharged after a negative repeat blood cultures. He will continue an additional 4 day course of antibiotics and a repeat chest x-ray in one week. Patient was advised to follow-up with his primary care in 1 week. He was further advised to come back or seek immediate care should his symptoms persist or get worse. The patient expressed understanding and in agreement with the plans as discussed above. All questions were answered. - Patient Instructions Diet: Usual Diet as Tolerated Activity: As Tolerated Driving: Do Not Drive Showering/Bathing: May Shower Notify Provider of: Fever, Increased Pain, Nausea and/or Vomiting Other/Special Instructions: - Please take all medications as directed. - We recommned a follow up CXR in 1 week. - Call or follow up with your family doctor in 1-2 weeks after discharge - Discharge Plan Prescriptions/Med Rec: Amoxicillin/Potassium Clav [Augmentin 875-125 Tablet] 1 each PO BID #8 tablet Dextromethorphan/guaiFENesin [Robitussin DM] 10 ml PO Q4H #20 cup Lactobac Cmb #3/Fos/Pantethine [Probiotic & Acidophilus] 1 each PO BID #8 capsule Home Medications: Home Meds Diltiazem. 5 ml GTUBE TID 06/19/15 [History] Metoprolol. 2.5 ml GTUBE TID 06/19/15 [History] Warfarin [Coumadin] 2.5 mg PO MOWEFR 07/07/16 [History] Warfarin [Coumadin] 5 mg PO SUTUTHSA 07/07/16 [History] Acetaminophen [Tylenol Extra Strength] 500 mg PO Q4H PRN 04/04/17 [History] Lactose-Reduced Food/Fiber [Isosource 1.5 Damon Liquid] 250 ml GTUBE 1200 11/12/ 17 [History] Lactose-Reduced Food/Fiber [Isosource 1.5 Damon Liquid] 375 ml GTUBE 0600 [History] Lactose-Reduced Food/Fiber [Isosource 1.5 Damon Liquid] 375 ml GTUBE 1800 [History] Amoxicillin/Potassium Clav [Augmentin 875-125 Tablet] 1 each PO BID #8 tablet [Rx] Dextromethorphan/guaiFENesin [Robitussin DM] 10 ml PO Q4H #20 cup 04/09/17 [Rx] Lactobac Cmb #3/Fos/Pantethine [Probiotic & Acidophilus] 1 each PO BID #8 capsule 04/09/17 [Rx] Patient Handouts: PEG Tube Home Guide, [id number], Care of a Feeding Tube, [id number], Bacteremia, Aspiration Pneumonia, Septic Shock - Discharge Summary/Plan Comment DC Time >30 min.: Yes (45 mins) Discharge Summary/Plan Comment: Discharge to Home - General Info Date of Service: 04/09/17 Admission Dx/Problem (Free Text: Sepsis and Atrial Fibrillation with RVR Subjective Update: Follow Up Functional Status: Reports: Pain Controlled, Tolerating Diet, Ambulating, Urinating. Denies: New Symptoms - Review of Systems General: Denies: Fever, Weakness, Fatigue, Malaise, Chills HEENT: Reports: No Symptoms Pulmonary: Reports: Shortness of Breath, Cough Cardiovascular: Denies: Chest Pain, Palpitations, Dyspnea on Exertion, Lightheadedness Gastrointestinal: Reports: Difficulty Swallowing. Denies: Abdominal Pain, Nausea, Vomiting Genitourinary: Reports: No Symptoms Musculoskeletal: Reports: No Symptoms Skin: Denies: Cyanosis, Mottled, Pallor, Diaphoresis, Bruising Neurological: Denies: Confusion, Pre-Existing Deficit, Seizure, Difficulty Walking, Weakness, Gait Disturbance Psychiatric: Denies: Depression, Anxiety, Agitation, Hallucinations Systems Review Comment: No overnight or acute issues. He is doing relatively well. He feels pretty good and now ready to go home. He has no new complaints. - Patient Data Vitals - Most Recent: Last Vital Signs Temp 36.8 C 04/09/17 03:00 Pulse 98 04/09/17 03:05 Resp 17 04/09/17 03:00 BP 122/74 04/09/17 03:00 Pulse Ox 90 L 04/09/17 03:05 Weight - Most Recent: 75.523 kg I&O - Last 24 hours: Intake & Output 04/08/17 04/09/17 04/09/17 22:59 06:59 14:59 Intake Total 100 527 Output Total 675 400 Balance -575 127 Lab Results - Last 24 hrs: Laboratory Results - last 24 hr 04/09/17 04/09/17 04/09/17 Range/Units 06:15 06:15 06:18 WBC 9.16 H (4.23-9.07) K/mm3 RBC 3.73 L (4.63-6.08) M/mm3 Hgb 12.4 L (13.7-17.5) gm/L Hct 36.7 L (40.1-51.0) % MCV 98.4 H (79.0-92.2) fl MCH 33.2 H (25.7-32.2) pg MCHC 33.8 (32.2-35.5) g/dl RDW Std Deviation 45.9 H (35.1-43.9) fL Plt Count 249 (163-337) K/mm3 MPV 10.9 (9.4-12.3) fl Neut % (Auto) 60.2 (34.0-67.9) % Lymph % (Auto) 14.3 L (21.8-53.1) % [place] % (Auto) 19.8 H (5.3-12.2) % Eos % (Auto) 4.3 (0.8-7.0) Baso % (Auto) 0.3 (0.1-1.2) % Neut # (Auto) 5.52 H (1.78-5.38) K/mm3 Lymph # (Auto) 1.31 L (1.32-3.57) K/mm3 [place] # (Auto) 1.81 H (0.30-0.82) K/mm3 Eos # (Auto) 0.39 (0.04-0.54) K/mm3 Baso # (Auto) 0.03 (0.01-0.08) K/mm3 Manual Slide Review Normal smear PT 26.5 H (8.0-13.0) SECONDS INR 2.30 Sodium (136-145) mEq/L Potassium (3.5-5.1) mEq/L Chloride (98-107) mEq/L Carbon Dioxide (21-32) mEq/L Anion Gap (5-15) BUN (7-18) mg/dL Creatinine (0.7-1.3) mg/dL Est Cr Clr Drug Dosing mL/min Estimated GFR (MDRD) (>60) mL/min BUN/Creatinine Ratio (14-18) Glucose (80-115) mg/dL Calcium (8.5-10.1) mg/dL C-Reactive Protein 14.0 H* (<1.0) mg/dL 04/09/17 Range/Units 06:18 WBC (4.23-9.07) K/mm3 RBC (4.63-6.08) M/mm3 Hgb (13.7-17.5) gm/L Hct (40.1-51.0) % MCV (79.0-92.2) fl MCH (25.7-32.2) pg MCHC (32.2-35.5) g/dl RDW Std Deviation (35.1-43.9) fL Plt Count (163-337) K/mm3 MPV (9.4-12.3) fl Neut % (Auto) (34.0-67.9) % Lymph % (Auto) (21.8-53.1) % [place] % (Auto) (5.3-12.2) % Eos % (Auto) (0.8-7.0) Baso % (Auto) (0.1-1.2) % Neut # (Auto) (1.78-5.38) K/mm3 Lymph # (Auto) (1.32-3.57) K/mm3 [place] # (Auto) (0.30-0.82) K/mm3 Eos # (Auto) (0.04-0.54) K/mm3 Baso # (Auto) (0.01-0.08) K/mm3 Manual Slide Review PT (8.0-13.0) SECONDS INR Sodium 134 L (136-145) mEq/L Potassium 3.6 (3.5-5.1) mEq/L Chloride 97 L (98-107) mEq/L Carbon Dioxide 29 (21-32) mEq/L Anion Gap 11.6 (5-15) BUN 10 (7-18) mg/dL Creatinine 0.6 L (0.7-1.3) mg/dL Est Cr Clr Drug Dosing 118.29 mL/min Estimated GFR (MDRD) > 60 (>60) mL/min BUN/Creatinine Ratio 16.7 (14-18) Glucose 102 (80-115) mg/dL Calcium 8.2 L (8.5-10.1) mg/dL C-Reactive Protein (<1.0) mg/dL RACHID Results - Last 24 hrs: Microbiology 04/06/17 23:46 Aerobic Blood Culture - Preliminary Blood - Venous NO GROWTH AFTER 2 DAYS Anaerobic Blood Culture - Preliminary NO GROWTH AFTER 2 DAYS 04/06/17 23:53 Aerobic Blood Culture - Preliminary Blood - Venous - Lab Draw NO GROWTH AFTER 2 DAYS Anaerobic Blood Culture - Preliminary NO GROWTH AFTER 2 DAYS Med Orders - Current: Current Medications Acetaminophen (Tylenol) 650 mg PO Q4H PRN PRN Reason: Pain (Mild 1-3)/fever Last Admin: 04/09/17 06:13 Dose: 650 mg Hydrocodone Bitart/Acetaminophen ([place] 325-5 Mg) 1 tab PO Q4H PRN PRN Reason: Pain (moderate 4-6) Albuterol/Ipratropium (Duoneb 3.0-0.5 Mg/3 Ml) 3 ml NEB Q4H PRN PRN Reason: Shortness Of Breath/wheezing Last Admin: 04/05/17 02:39 Dose: 3 ml Bisacodyl (Dulcolax) 5 mg PO DAILY PRN PRN Reason: Constipation Diltiazem HCl (Cardizem) 60 mg GTUBE TID [facility] Last Admin: 04/08/17 21:17 Dose: 60 mg Docusate Sodium (Colace) 100 mg PO BID PRN PRN Reason: Constipation Famotidine (Pepcid) 20 mg PO BID [facility] Last Admin: 04/08/17 21:17 Dose: 20 mg Guaifenesin/Phenylephrine HCl (Robitussin Dm) 10 ml PO Q6H [facility] Last Admin: 04/09/17 06:00 Dose: 10 ml Hydralazine HCl (Apresoline) 20 mg IVPUSH Q4H PRN PRN Reason: Hypertension Hydromorphone HCl (Dilaudid) 0.25 mg IVPUSH Q2H PRN PRN Reason: Pain (severe 7-10) Promethazine HCl 12.5 mg/ (Sodium Chloride) 50.5 mls @ 100 mls/hr IV Q6H PRN PRN Reason: Nausea/Vomiting Piperacillin Sod/Tazobactam (Sod 4.5 gm/ Dextrose/Water) 100 mls @ 25 mls/hr IV Q8H [facility] Last Admin: 04/09/17 06:34 Dose: 25 mls/hr Lorazepam (Ativan) 1 mg IV Q6H PRN PRN Reason: Anxiety Magnesium Sulfate (Pharmacy To Dose - Magnesium Replacement) 0 dose .XX ASDIRECTED PRN PRN Reason: RX TO WATCH MAG LEVELS Metoprolol Tartrate (Lopressor) 5 mg IVPUSH Q4H PRN PRN Reason: Tachycardia Last Admin: 04/05/17 06:35 Dose: 5 mg Metoprolol Tartrate (Lopressor) 25 mg GTUBE TID [facility] Last Admin: 04/08/17 21:16 Dose: 25 mg Ondansetron HCl (Zofran) 4 mg IV Q6H PRN PRN Reason: Nausea/Vomiting Polyethylene Glycol (Miralax) 17 gm PO DAILY PRN PRN Reason: Constipation Potassium Chloride (Pharmacy To Dose - Potassium Replacement) 0 dose .XX ASDIRECTED PRN PRN Reason: RX TO WATCH K LEVELS Saccharomyces Boulardii (Florastor) 250 mg PO BID [facility] Last Admin: 04/08/17 21:18 Dose: 250 mg Senna/Docusate Sodium (Senna Plus) 1 tab PO BID PRN PRN Reason: Constipation Temazepam (Restoril) 7.5 mg PO BEDTIME PRN PRN Reason: Sleep Warfarin Sodium (Coumadin) 2.5 mg PO MoWeFr@1800 [facility] Last Admin: 04/07/17 18:06 Dose: 2.5 mg Warfarin Sodium (Coumadin) 5 mg PO SuTuThSa@1800 [facility] Last Admin: 04/08/17 18:25 Dose: 5 mg Discontinued Medications Acetaminophen (Tylenol Solution) 650 mg PO ONETIME ONE Stop: 04/04/17 09:27 Last Admin: 04/04/17 10:30 Dose: 650 mg Bumetanide (Bumex) 1 mg IVPUSH ONETIME ONE Stop: 04/04/17 14:36 Last Admin: 04/04/17 15:22 Dose: 1 mg Diltiazem HCl (Diltiazem) 10 mg IVPUSH ONETIME STA Stop: 04/04/17 07:41 Last Admin: 04/04/17 07:52 Dose: 10 mg Hydrocortisone Sodium Succinate (Solu-Cortef) 100 mg IVPUSH Q6H [facility] Last Admin: 04/05/17 10:00 Dose: 100 mg Sodium Chloride (Normal Saline) 1,000 mls @ 999 mls/hr IV ONETIME ONE Stop: 04/04/17 08:22 Last Admin: 04/04/17 07:30 Dose: 999 mls/hr Diltiazem HCl 125 mg/ Sodium (Chloride) 125 mls @ 10 mls/hr IV TITRATE KARINA; 10 MG/HR PRN Reason: Protocol Last Titration: 04/04/17 11:39 Dose: 0 mg/hr, 0 mls/hr Ampicillin Sodium/Sulbactam (Sodium 3 gm/ Sodium Chloride) 100 mls @ 200 mls/ hr IV ONETIME ONE Stop: 04/04/17 08:32 Last Admin: 04/04/17 09:00 Dose: 200 mls/hr Sodium Chloride (Normal Saline) 1,000 mls @ 250 mls/hr IV ASDIRECTED [facility] Last Admin: 04/04/17 08:50 Dose: 250 mls/hr Ampicillin Sodium/Sulbactam (Sodium 1.5 gm/ Sodium Chloride) 100 mls @ 200 mls/ hr IV Q6H [facility] Last Admin: 04/06/17 08:40 Dose: 200 mls/hr Levofloxacin/Dextrose 750 mg/ (Premix) 150 mls @ 100 mls/hr IV ONETIME ONE Stop: 04/04/17 11:58 Last Admin: 04/04/17 11:42 Dose: 100 mls/hr Levofloxacin/Dextrose 750 mg/ (Premix) 150 mls @ 100 mls/hr IV Q24H [facility] Last Admin: 04/06/17 11:43 Dose: Not Given Sodium Chloride (Normal Saline) 1,000 mls @ 999 mls/hr IV .BOLUS ONE Stop: 04/04/17 11:30 Last Admin: 04/04/17 11:41 Dose: 999 mls/hr Norepinephrine Bitartrate 4 mg (/ Dextrose/Water) 250 mls @ 7.5 mls/hr IV TITRATE KARINA; 2 MCG/MIN PRN Reason: Protocol Last Titration: 04/05/17 09:15 Dose: 0 mcg/min, 0 mls/hr Sodium Chloride (Normal Saline) 500 mls @ 999 mls/hr IV .BOLUS ONE Stop: 04/04/17 12:29 Last Admin: 04/04/17 12:07 Dose: 999 mls/hr Sodium Chloride (Normal Saline) 1,000 mls @ 75 mls/hr IV ASDIRECTED KARINA Last Admin: 04/07/17 23:56 Dose: 75 mls/hr Magnesium Sulfate 2 gm/ Premix 50 mls @ 25 mls/hr IV ONETIME ONE Stop: 04/05/17 09:59 Last Admin: 04/05/17 08:33 Dose: 25 mls/hr Piperacillin Sod/Tazobactam (Sod 4.5 gm/ Dextrose/Water) 100 mls @ 200 mls/hr IV ONETIME ONE Stop: 04/06/17 14:59 Last Admin: 04/06/17 15:07 Dose: 200 mls/hr Levofloxacin/Dextrose 750 mg/ (Premix) 150 mls @ 100 mls/hr IV ONETIME ONE Stop: 04/08/17 09:59 Last Admin: 04/08/17 08:45 Dose: 100 mls/hr Non-Formulary Medication (Acetaminophen) 500 mg PO Q4H PRN PRN Reason: Fever Isosource 1.5 Damon (Liquid Tube Feeding) 0 each GTUBE ACDINNER KARINA Last Admin: 04/04/17 16:51 Dose: 325 each Isosource 1.5 Damon (Liquid Tube Feeding) 0 each GTUBE ACBREAKFAST KARINA Last Admin: 04/06/17 20:28 Dose: Not Given Isosource 1.5 Damon (Liquid Tube Feeding) 0 each GTUBE ACLUNCH KARINA Saccharomyces Boulardii (Florastor) 500 mg PO NOW STA Stop: 04/04/17 10:45 Last Admin: 04/04/17 11:42 Dose: 500 mg - Exam Quality Assessment: Reports: Supplemental Oxygen General: Reports: Alert, Oriented, Cooperative, No Acute Distress HEENT: Reports: Pupils Equal, Pupils Reactive, EOMI, Mucous Membr. Moist/[place]ck: Reports: Supple, Trachea Midline, No JVD, No Thyromegaly Lungs: Reports: Normal Respiratory Effort, Decreased Breath Sounds Cardiovascular: Reports: Irregular Rhythm GI/Abdominal Exam: Normal Bowel Sounds, Soft, Non-Tender, No Organomegaly, No Distention, No Abnormal Bruit, No Mass (Male) Exam: Deferred Rectal (Males) Exam: Deferred Back Exam: Reports: Normal Inspection, Decreased Range of Motion Extremities: Normal Inspection, Normal Range of Motion, Non-Tender, No Pedal Edema, Normal Capillary Refill Skin: Reports: Warm, Dry, Intact Neurological: Reports: No New Focal Deficit Psy/Mental Status: Reports: Alert, Normal Affect, Normal Mood *Q Meaningful Use (DIS) - VTE *Q VTE Criteria *Q: - Stroke *Q Stroke Criteria *Q: - AMI *Q AMI Criteria *Q:
[2017-04-09] MEDS: Saccharomyces Boulardii (Probiotic) 250 MG Cap PO SCH (09:06)
[2017-04-09] MEDS: Metoprolol Tartrate 25 MG Tab GTUBE SCH (09:07)
[2017-04-09] MEDS: Diltiazem IR 60 MG Tab GTUBE SCH (09:07)
[2017-04-09] MEDS: Famotidine 20 MG Tab PO SCH (09:07)
[2017-04-09 09:10] VITALS: BP 120/79
[2017-04-09] MEDS: Albuterol/Ipratropium 3.0-0.5 MG/3 ML Neb Soln NEB PRN (09:15)
== END 2017-04-09 12:10 | disposition home or self-care (01) | DRG 871 ==
LOC: JD.ED 06:40 → UNDOADMIN 09:39 → JD.ICU 09:39 → JD.MS 04-06 18:22
PROVIDERS: ADMIT Internal Medicine; ATTEND Internal Medicine
DX: A40.3 Sepsis due to Streptococcus pneumoniae (principal); R65.21 Severe sepsis with septic shock; J69.0 Pneumonitis due to inhalation of food and vomit; N17.9 Acute kidney failure, unspecified; E87.2 Acidosis; D72.89 Other specified disorders of white blood cells; I48.0 Paroxysmal atrial fibrillation; Z79.01 Long term (current) use of anticoagulants; K21.9 Gastro-esophageal reflux disease without esophagitis; R13.10 Dysphagia, unspecified; H54.7 Unspecified visual loss; N40.0 Benign prostatic hyperplasia without lower urinary tract symptoms; Z85.89 Personal history of malignant neoplasm of other organs and systems; Z93.1 Gastrostomy status; Z96.643 Presence of artificial hip joint, bilateral; Z87.891 Personal history of nicotine dependence; Z79.899 Other long term (current) drug therapy
CPT/HCPCS: 36415; 36600; 71010; 80053; 82533; 82803; 83605; 84484; 85025; 85610; 85730; 86140; 87040 ×2; 87077 ×2; 87804 ×2; 93005; 96361; 96365; 96366; 96376; 99285; A9270; J0295; J3490; J7030 ×2; J7040 ×2; 80048; 81001; 83735; 84132; 87070; 87086; 87181; 87184; 87186; 87205; 92526-GN; 92610-GN; 93010; 94640; 94667; 94668; 94760; 97116-GP; 97162-GP; 97165-GO; 97530-GP; J1720; J1956; J2543; J3475; J7060